=== PATIENT | male | born 1970 | race Caucasian/White ===

== ENCOUNTER 2020-11-21 11:32 | Inpatient (IN) | payer OTHER ==
[2020-11-21 13:35] VITALS: BMI 28.5
[2020-11-21] MEDS ORDERED: MAGNESIUM CITRATE 300 ML BOTTLE PO PRN (15:09)
[2020-11-21] MEDS ORDERED: BISMUTH SUBSALICYLATE 262 MG/15 ML BTL PO PRN (15:09)
[2020-11-21] MEDS ORDERED: MENTHOL/PHENOL 1 EACH UD MM PRN (15:09)
[2020-11-21] MEDS ORDERED: ACETAMINOPHEN 325 MG TABLET (FP) PO PRN ×2 (15:09)
[2020-11-21] MEDS ORDERED: NALOXONE (NARCAN) HCL 4 MG/0.1 ML SPRAY NS PRN (15:09)
[2020-11-21] MEDS ORDERED: IBUPROFEN 400 MG TABLET (FP) PO PRN (15:09)
[2020-11-21] MEDS ORDERED: METHOCARBAMOL 500 MG TABLET PO PRN (15:09)
[2020-11-21] MEDS ORDERED: NICOTINE POLACRILEX 2 MG GUM BUC PRN (15:09)
[2020-11-21] MEDS ORDERED: ONDANSETRON *ODT* 4 MG TABLET ONE (15:20)
[2020-11-21] MEDS: ONDANSETRON *ODT* 4 MG TABLET SL PRN (15:21)
[2020-11-21] MEDS: LORazepam 2 MG TABLET PO SCH ×2 (16:31→22:00)
[2020-11-21] MEDS: PRENATAL VITAMINS W/ FOLIC ACID TABLET (FP) PO SCH (16:35)
[2020-11-21] MEDS: NIFEdipine E.R. 90 MG TABLET PO SCH (17:30)
[2020-11-21] MEDS: NICOTINE 21 MG/24 HOURS TOPICAL PATCH TD SCH (17:41)
[2020-11-21] MEDS ORDERED: hydrOXYzine PAMOATE 25 MG CAPSULE (FP) PO SCH (18:00)
[2020-11-21 18:42] LABS: HEMATOCRIT 40.8 % (35.4-49); HEMOGLOBIN 13.8 GM/dL (11.7-16.9); MCH 32.7 pg (25.7-33.7); MCHC 33.7 g/dl (32.0-35.9); MEAN CELL VOLUME 96.8 fl (80-96); MEAN PLT VOLUME 11.3 fl (7.5-11.1); PLATELET COUNT 93 K/MM3 (134-434); RBC 4.22 M/mm3 (4.00-5.60); RDW 17.2 % (11.9-15.9); WHITE BLOOD COUNT 4.5 K/mm3 (4.0-10.0)
[2020-11-21 18:43] LABS: CHLORIDE 98 mmol/L (98-107); SODIUM 140 mmol/L (136-145)
[2020-11-21 18:46] LABS: ALBUMIN 3.9 g/dl (3.4-5.0); BLOOD UREA NITROGEN 12.4 mg/dL (7-18); CALCIUM 8.8 mg/dL (8.5-10.1); CO2 33 mmol/L (21-32); GLUCOSE,RANDOM 87 mg/dL (74-106)
[2020-11-21 18:49] LABS: CREATININE 0.9 mg/dL (0.55-1.3); SGOT/AST 319 U/L (15-37); SGPT/ALT 153 U/L (13-61)
[2020-11-21 18:51] LABS: BILIRUBIN,TOTAL 2.2 mg/dL (0.2-1); TOT PROT 7.9 g/dl (6.4-8.2)
[2020-11-21 18:52] LABS: ALK PHOS 145 U/L (45-117)
[2020-11-21] MEDS: LORazepam 1 MG TABLET PO PRN (18:52)
[2020-11-21 19:04] LABS: ANION GAP 9 MMOL/L (8-16)
[2020-11-21] MEDS ORDERED: POTASSIUM CHLORIDE ORAL LIQUID 20 MEQ/15 ML PO ONE (19:32)
[2020-11-21] MEDS ORDERED: TRIMETHOBENZAMIDE HCL 200MG/2ML INJ IM ONE (21:06)
[2020-11-21] MEDS ORDERED: cloNIDine HCL 0.1 MG TABLET PO ONE (21:10)
[2020-11-21] MEDS: THIAMINE HCL 100 MG TABLET (FP) PO SCH (21:56)
[2020-11-21] MEDS: POTASSIUM CHLORIDE ORAL LIQUID 20 MEQ/15 ML PO SCH (21:56)
[2020-11-21] MEDS: MELATONIN 5 MG TABLETS PO SCH (22:00)
[2020-11-22] MEDS ORDERED: METHADONE HCL 40 MG DISPERSABLE TABLET ONE (04:08)
[2020-11-22] MEDS ORDERED: METHADONE HCL 10 MG TABLET ONE (04:08)
[2020-11-22] MEDS: LORazepam 2 MG TABLET PO SCH ×4 (05:09→22:06)
[2020-11-22] MEDS: METHADONE 160 MG, METHADONE 20 MG PO SCH (05:10)
[2020-11-22] MEDS: ONDANSETRON *ODT* 4 MG TABLET SL PRN (05:11)
[2020-11-22] MEDS ORDERED: METHADONE HCL 10 MG TABLET PO SCH (06:00)
[2020-11-22] MEDS: LORazepam 1 MG TABLET PO PRN ×2 (08:39→13:32)
[2020-11-22] MEDS: NICOTINE 21 MG/24 HOURS TOPICAL PATCH TD SCH (10:17)
[2020-11-22] MEDS: POTASSIUM CHLORIDE ORAL LIQUID 20 MEQ/15 ML PO SCH ×2 (10:20→22:05)
[2020-11-22] MEDS: PRENATAL VITAMINS W/ FOLIC ACID TABLET (FP) PO SCH (10:20)
[2020-11-22] MEDS: NIFEdipine E.R. 90 MG TABLET PO SCH (10:20)
[2020-11-22] MEDS: LISINOPRIL 20 MG TABLET PO SCH (10:20)
[2020-11-22 10:31] LABS: CHLORIDE 96 mmol/L (98-107); SODIUM 140 mmol/L (136-145)
[2020-11-22 10:44] LABS: BLOOD UREA NITROGEN 13.9 mg/dL (7-18); CO2 38 mmol/L (21-32); GLUCOSE,RANDOM 103 mg/dL (74-106)
[2020-11-22 10:47] LABS: CREATININE 0.8 mg/dL (0.55-1.3)
[2020-11-22 10:55] LABS: ANION GAP 6 MMOL/L (8-16)
[2020-11-22] MEDS: SERTRALINE HCL 50 MG TABLET (FP) PO SCH (11:08)
[2020-11-22] MEDS ORDERED: POTASSIUM CHLORIDE TABS 20 MEQ TABLET.ER (FP) PO ONE (11:16)
[2020-11-22] MEDS ORDERED: FLU VACCINE (FLULAVAL) PF 60 MCG/0.5 ML SYRINGE 2020-2021 IM ONE (12:00)
[2020-11-22] MEDS ORDERED: PNEUMOC 13-VAL CONJ-DIP CRM/PF 0.5 ML DISP.SYRIN IM ONE (12:00)
[2020-11-22] MEDS ORDERED: PNEUMOCOCCAL 23 VACCINE 0.5 ML VIAL IM ONE (12:00)
[2020-11-22] MEDS: GABAPENTIN 300 MG CAPSULE PO SCH ×2 (13:34→22:05)
[2020-11-22] MEDS: THIAMINE HCL 100 MG TABLET (FP) PO SCH (22:05)
[2020-11-22] MEDS: OLANZapine 7.5 MG TABLET PO SCH (22:05)
[2020-11-22] MEDS: MELATONIN 5 MG TABLETS PO SCH (22:06)
[2020-11-23] MEDS ORDERED: METHADONE HCL 10 MG TABLET ONE (03:36)
[2020-11-23] MEDS ORDERED: METHADONE HCL 40 MG DISPERSABLE TABLET ONE (03:37)
[2020-11-23] MEDS: GABAPENTIN 300 MG CAPSULE PO SCH ×3 (05:15→22:05)
[2020-11-23] MEDS: LORazepam 1 MG TABLET PO SCH ×4 (05:17→22:05)
[2020-11-23] MEDS: METHADONE 160 MG, METHADONE 20 MG PO SCH (05:52)
[2020-11-23] MEDS: NICOTINE 21 MG/24 HOURS TOPICAL PATCH TD SCH (10:16)
[2020-11-23] MEDS: PRENATAL VITAMINS W/ FOLIC ACID TABLET (FP) PO SCH (10:16)
[2020-11-23] MEDS: LISINOPRIL 20 MG TABLET PO SCH (10:17)
[2020-11-23] MEDS: SERTRALINE HCL 50 MG TABLET (FP) PO SCH (10:17)
[2020-11-23] MEDS: NIFEdipine E.R. 90 MG TABLET PO SCH (10:17)
[2020-11-23] MEDS: POTASSIUM CHLORIDE ORAL LIQUID 20 MEQ/15 ML PO SCH ×2 (10:18→22:06)
[2020-11-23] MEDS: OLANZapine 7.5 MG TABLET PO SCH (22:05)
[2020-11-23] MEDS: THIAMINE HCL 100 MG TABLET (FP) PO SCH (22:05)
[2020-11-23] MEDS: MELATONIN 5 MG TABLETS PO SCH (22:06)
[2020-11-24] MEDS ORDERED: LORazepam 0.5 MG TABLET PO PRN
[2020-11-24] MEDS ORDERED: METHADONE HCL 10 MG TABLET ONE (04:11)
[2020-11-24] MEDS ORDERED: METHADONE HCL 40 MG DISPERSABLE TABLET ONE (04:12)
[2020-11-24] MEDS: METHADONE 160 MG, METHADONE 20 MG PO SCH (05:56)
[2020-11-24] MEDS: LORazepam 0.5 MG TABLET PO SCH ×4 (05:58→22:21)
[2020-11-24] MEDS: GABAPENTIN 300 MG CAPSULE PO SCH ×3 (05:58→22:21)
[2020-11-24 10:11] LABS: SARS-CoV-2 NAA Not Detected (Not Detected)
[2020-11-24] MEDS: PRENATAL VITAMINS W/ FOLIC ACID TABLET (FP) PO SCH (10:29)
[2020-11-24] MEDS: NIFEdipine E.R. 90 MG TABLET PO SCH (10:30)
[2020-11-24] MEDS: SERTRALINE HCL 50 MG TABLET (FP) PO SCH (10:30)
[2020-11-24] MEDS: POTASSIUM CHLORIDE ORAL LIQUID 20 MEQ/15 ML PO SCH ×2 (10:31→22:55)
[2020-11-24] MEDS: NICOTINE 21 MG/24 HOURS TOPICAL PATCH TD SCH (10:31)
[2020-11-24] MEDS: THIAMINE HCL 100 MG TABLET (FP) PO SCH (22:21)
[2020-11-24] MEDS: OLANZapine 7.5 MG TABLET PO SCH (22:26)
[2020-11-24] MEDS: MELATONIN 5 MG TABLETS PO SCH (22:27)
[2020-11-25] MEDS ORDERED: METHADONE HCL 40 MG DISPERSABLE TABLET ONE (03:20)
[2020-11-25] MEDS ORDERED: METHADONE HCL 10 MG TABLET ONE (03:20)
[2020-11-25] MEDS ORDERED: LORazepam 0.5 MG TABLET PO ONE (05:00)
[2020-11-25] MEDS: METHADONE 160 MG, METHADONE 20 MG PO SCH (05:49)
[2020-11-25] MEDS: GABAPENTIN 300 MG CAPSULE PO SCH ×3 (05:50→21:05)
[2020-11-25] MEDS: PRENATAL VITAMINS W/ FOLIC ACID TABLET (FP) PO SCH (10:13)
[2020-11-25] MEDS: SERTRALINE HCL 50 MG TABLET (FP) PO SCH (10:14)
[2020-11-25] MEDS: NICOTINE 21 MG/24 HOURS TOPICAL PATCH TD SCH (10:14)
[2020-11-25] MEDS: NIFEdipine E.R. 90 MG TABLET PO SCH (10:14)
[2020-11-25] MEDS: POTASSIUM CHLORIDE ORAL LIQUID 20 MEQ/15 ML PO SCH (11:00)
[2020-11-25] MEDS: MELATONIN 5 MG TABLETS PO SCH (21:05)
[2020-11-25] MEDS: THIAMINE HCL 100 MG TABLET (FP) PO SCH (21:06)
[2020-11-25] MEDS ORDERED: OLANZapine 10 MG TABLET ONE (21:34)
[2020-11-25] MEDS ORDERED: OLANZapine 5 MG TABLET ONE (21:34)
[2020-11-25] MEDS: OLANZapine 7.5 MG TABLET PO SCH (21:41)
[2020-11-25] MEDS ORDERED: OLANZAPINE 10 MG, OLANZAPINE 5 MG PO SCH (22:00)
[2020-11-26] MEDS ORDERED: METHADONE HCL 10 MG TABLET ONE (05:25)
[2020-11-26] MEDS ORDERED: METHADONE HCL 40 MG DISPERSABLE TABLET ONE (05:25)
[2020-11-26] MEDS: GABAPENTIN 300 MG CAPSULE PO SCH ×3 (06:44→21:11)
[2020-11-26] MEDS: METHADONE 160 MG, METHADONE 20 MG PO SCH (06:44)
[2020-11-26] MEDS: ONDANSETRON *ODT* 4 MG TABLET SL PRN (06:59)
[2020-11-26] MEDS ORDERED: PT OWN MED DRAWER 7, Y5N ONE ×3 (08:16→19:37)
[2020-11-26] MEDS: SERTRALINE HCL 50 MG TABLET (FP) PO SCH (09:27)
[2020-11-26] MEDS: PRENATAL VITAMINS W/ FOLIC ACID TABLET (FP) PO SCH (09:28)
[2020-11-26] MEDS: NICOTINE 21 MG/24 HOURS TOPICAL PATCH TD SCH (09:28)
[2020-11-26] MEDS: NIFEdipine E.R. 90 MG TABLET PO SCH (11:00)
[2020-11-26] MEDS: POTASSIUM CHLORIDE ORAL LIQUID 20 MEQ/15 ML PO SCH ×2 (11:20→21:12)
[2020-11-26] MEDS ORDERED: TRIMETHOBENZAMIDE HCL 200MG/2ML INJ IM PRN (11:51)
[2020-11-26] MEDS: MELATONIN 5 MG TABLETS PO SCH (21:10)
[2020-11-26] MEDS: OLANZapine 5 MG TABLET PO SCH (21:10)
[2020-11-26] MEDS: THIAMINE HCL 100 MG TABLET (FP) PO SCH (21:10)
[2020-11-27] MEDS ORDERED: METHADONE HCL 40 MG DISPERSABLE TABLET ONE (03:26)
[2020-11-27] MEDS ORDERED: METHADONE HCL 10 MG TABLET ONE (03:26)
[2020-11-27] MEDS: METHADONE 160 MG, METHADONE 20 MG PO SCH (06:33)
[2020-11-27] MEDS: GABAPENTIN 300 MG CAPSULE PO SCH ×3 (06:33→21:18)
[2020-11-27] MEDS ORDERED: PT OWN MED DRAWER 7, Y5N ONE ×3 (08:45→19:08)
[2020-11-27] MEDS: POTASSIUM CHLORIDE ORAL LIQUID 20 MEQ/15 ML PO SCH (10:01)
[2020-11-27] MEDS: SERTRALINE HCL 50 MG TABLET (FP) PO SCH (10:02)
[2020-11-27] MEDS: NIFEdipine E.R. 90 MG TABLET PO SCH (10:02)
[2020-11-27] MEDS: PRENATAL VITAMINS W/ FOLIC ACID TABLET (FP) PO SCH (10:02)
[2020-11-27] MEDS: LISINOPRIL 20 MG TABLET PO SCH (10:02)
[2020-11-27] MEDS: NICOTINE 21 MG/24 HOURS TOPICAL PATCH TD SCH (10:03)
[2020-11-27] MEDS ORDERED: FLU VACCINE (FLULAVAL) PF 60 MCG/0.5 ML SYRINGE 2020-2021 IM ONE (12:00)
[2020-11-27] MEDS ORDERED: PNEUMOCOCCAL 23 VACCINE 0.5 ML VIAL IM ONE (12:00)
[2020-11-27] MEDS: THIAMINE HCL 100 MG TABLET (FP) PO SCH (21:18)
[2020-11-27] MEDS: OLANZapine 5 MG TABLET PO SCH (21:18)
[2020-11-27] MEDS: MELATONIN 5 MG TABLETS PO SCH (21:18)
[2020-11-28] MEDS ORDERED: METHADONE HCL 10 MG TABLET ONE (03:22)
[2020-11-28] MEDS ORDERED: METHADONE HCL 40 MG DISPERSABLE TABLET ONE (03:23)
[2020-11-28] MEDS: METHADONE 160 MG, METHADONE 20 MG PO SCH (06:31)
[2020-11-28] MEDS: GABAPENTIN 300 MG CAPSULE PO SCH ×3 (06:32→21:21)
[2020-11-28] MEDS ORDERED: PT OWN MED DRAWER 7, Y5N ONE (08:59)
[2020-11-28] MEDS: NICOTINE 21 MG/24 HOURS TOPICAL PATCH TD SCH (09:16)
[2020-11-28] MEDS: SERTRALINE HCL 50 MG TABLET (FP) PO SCH (09:17)
[2020-11-28] MEDS: PRENATAL VITAMINS W/ FOLIC ACID TABLET (FP) PO SCH (09:18)
[2020-11-28] MEDS: NIFEdipine E.R. 90 MG TABLET PO SCH (09:18)
[2020-11-28] MEDS: LISINOPRIL 20 MG TABLET PO SCH (09:18)
[2020-11-28] MEDS: MAGNESIUM HYDROX 2400MG/30ML ORAL SUSPENSION 30 ML CUP PO PRN (09:20)
[2020-11-28] MEDS: OLANZapine 5 MG TABLET PO SCH (21:21)
[2020-11-28] MEDS: MELATONIN 5 MG TABLETS PO SCH (21:22)
[2020-11-28] MEDS: THIAMINE HCL 100 MG TABLET (FP) PO SCH (21:22)
[2020-11-28] MEDS: MAG HYDROX/AL HYDROX/SIMETH 30 ML UNIT-DOSE CUP PO PRN (21:23)
[2020-11-29] MEDS ORDERED: METHADONE HCL 10 MG TABLET ONE (03:18)
[2020-11-29] MEDS ORDERED: METHADONE HCL 40 MG DISPERSABLE TABLET ONE (03:19)
[2020-11-29] MEDS: METHADONE 160 MG, METHADONE 20 MG PO SCH (06:35)
[2020-11-29] MEDS: GABAPENTIN 300 MG CAPSULE PO SCH ×3 (06:36→21:17)
[2020-11-29] MEDS ORDERED: PT OWN MED DRAWER 7, Y5N ONE ×2 (08:41→20:25)
[2020-11-29] MEDS: NICOTINE 21 MG/24 HOURS TOPICAL PATCH TD SCH (09:03)
[2020-11-29] MEDS: PRENATAL VITAMINS W/ FOLIC ACID TABLET (FP) PO SCH (09:03)
[2020-11-29] MEDS: NIFEdipine E.R. 90 MG TABLET PO SCH (09:04)
[2020-11-29] MEDS: SERTRALINE HCL 50 MG TABLET (FP) PO SCH (09:04)
[2020-11-29] MEDS: LISINOPRIL 20 MG TABLET PO SCH (09:04)
[2020-11-29] MEDS: THIAMINE HCL 100 MG TABLET (FP) PO SCH (21:15)
[2020-11-29] MEDS: MELATONIN 5 MG TABLETS PO SCH (21:15)
[2020-11-29] MEDS: OLANZapine 5 MG TABLET PO SCH (21:16)
[2020-11-30] MEDS ORDERED: METHADONE HCL 40 MG DISPERSABLE TABLET ONE (03:35)
[2020-11-30] MEDS ORDERED: METHADONE HCL 10 MG TABLET ONE (03:35)
[2020-11-30] MEDS: GABAPENTIN 300 MG CAPSULE PO SCH ×3 (06:14→21:14)
[2020-11-30] MEDS: METHADONE 160 MG, METHADONE 20 MG PO SCH (06:14)
[2020-11-30] MEDS ORDERED: PT OWN MED DRAWER 7, Y5N ONE ×2 (08:51→18:38)
[2020-11-30] MEDS: SERTRALINE HCL 50 MG TABLET (FP) PO SCH (09:36)
[2020-11-30] MEDS: PRENATAL VITAMINS W/ FOLIC ACID TABLET (FP) PO SCH (09:36)
[2020-11-30] MEDS: LISINOPRIL 20 MG TABLET PO SCH (09:36)
[2020-11-30] MEDS: NIFEdipine E.R. 90 MG TABLET PO SCH (09:37)
[2020-11-30] MEDS: NICOTINE 21 MG/24 HOURS TOPICAL PATCH TD SCH (09:38)
[2020-11-30] MEDS: MAG HYDROX/AL HYDROX/SIMETH 30 ML UNIT-DOSE CUP PO PRN (11:26)
[2020-11-30 14:08] LABS: SARS-CoV-2 NAA Not Detected (Not Detected)
[2020-11-30] MEDS ORDERED: FAMOTIDINE 20 MG TABLET PO ONE (15:49)
[2020-11-30] MEDS: THIAMINE HCL 100 MG TABLET (FP) PO SCH (21:14)
[2020-11-30] MEDS: OLANZapine 5 MG TABLET PO SCH (21:14)
[2020-11-30] MEDS: MELATONIN 5 MG TABLETS PO SCH (21:14)
[2020-11-30] MEDS: FAMOTIDINE 20 MG TABLET PO SCH (21:15)
[2020-12-01] MEDS ORDERED: METHADONE HCL 10 MG TABLET ONE (06:13)
[2020-12-01] MEDS ORDERED: METHADONE HCL 40 MG DISPERSABLE TABLET ONE (06:13)
[2020-12-01] MEDS: METHADONE 160 MG, METHADONE 20 MG PO SCH (06:18)
[2020-12-01] MEDS: GABAPENTIN 300 MG CAPSULE PO SCH ×3 (06:19→21:02)
[2020-12-01] MEDS: NICOTINE 21 MG/24 HOURS TOPICAL PATCH TD SCH (09:34)
[2020-12-01] MEDS: SERTRALINE HCL 50 MG TABLET (FP) PO SCH (09:34)
[2020-12-01] MEDS: NIFEdipine E.R. 90 MG TABLET PO SCH (09:35)
[2020-12-01] MEDS: PRENATAL VITAMINS W/ FOLIC ACID TABLET (FP) PO SCH (09:35)
[2020-12-01] MEDS: LISINOPRIL 20 MG TABLET PO SCH (09:35)
[2020-12-01] MEDS: FAMOTIDINE 20 MG TABLET PO SCH ×2 (09:35→21:02)
[2020-12-01] MEDS ORDERED: PT OWN MED DRAWER 7, Y5N ONE (19:59)
[2020-12-01] MEDS: OLANZapine 5 MG TABLET PO SCH (21:02)
[2020-12-01] MEDS: THIAMINE HCL 100 MG TABLET (FP) PO SCH (21:03)
[2020-12-01] MEDS: MELATONIN 5 MG TABLETS PO SCH (21:03)
[2020-12-02] MEDS ORDERED: METHADONE HCL 40 MG DISPERSABLE TABLET ONE (03:17)
[2020-12-02] MEDS ORDERED: METHADONE HCL 10 MG TABLET ONE (03:17)
[2020-12-02] MEDS: METHADONE 160 MG, METHADONE 20 MG PO SCH (06:29)
[2020-12-02] MEDS: GABAPENTIN 300 MG CAPSULE PO SCH ×3 (06:30→21:12)
[2020-12-02] MEDS ORDERED: PT OWN MED DRAWER 7, Y5N ONE ×2 (08:05→21:13)
[2020-12-02] MEDS: SERTRALINE HCL 50 MG TABLET (FP) PO SCH (09:20)
[2020-12-02] MEDS: LISINOPRIL 20 MG TABLET PO SCH (09:20)
[2020-12-02] MEDS: NIFEdipine E.R. 90 MG TABLET PO SCH (09:20)
[2020-12-02] MEDS: FAMOTIDINE 20 MG TABLET PO SCH ×2 (09:21→21:12)
[2020-12-02] MEDS: NICOTINE 21 MG/24 HOURS TOPICAL PATCH TD SCH (09:21)
[2020-12-02] MEDS: PRENATAL VITAMINS W/ FOLIC ACID TABLET (FP) PO SCH (10:13)
[2020-12-02] MEDS: THIAMINE HCL 100 MG TABLET (FP) PO SCH (21:12)
[2020-12-02] MEDS: MELATONIN 5 MG TABLETS PO SCH (21:12)
[2020-12-02] MEDS: OLANZapine 5 MG TABLET PO SCH (21:36)
[2020-12-03] MEDS ORDERED: METHADONE HCL 10 MG TABLET ONE (03:20)
[2020-12-03] MEDS ORDERED: METHADONE HCL 40 MG DISPERSABLE TABLET ONE (03:20)
[2020-12-03] MEDS: GABAPENTIN 300 MG CAPSULE PO SCH ×3 (07:03→21:26)
[2020-12-03] MEDS: METHADONE 160 MG, METHADONE 20 MG PO SCH (07:03)
[2020-12-03] MEDS ORDERED: PT OWN MED DRAWER 7, Y5N ONE (09:21)
[2020-12-03] MEDS: SERTRALINE HCL 50 MG TABLET (FP) PO SCH (09:55)
[2020-12-03] MEDS: PRENATAL VITAMINS W/ FOLIC ACID TABLET (FP) PO SCH (09:56)
[2020-12-03] MEDS: LISINOPRIL 20 MG TABLET PO SCH (09:56)
[2020-12-03] MEDS: FAMOTIDINE 20 MG TABLET PO SCH ×2 (09:56→21:25)
[2020-12-03] MEDS: NIFEdipine E.R. 90 MG TABLET PO SCH (09:56)
[2020-12-03] MEDS: NICOTINE 21 MG/24 HOURS TOPICAL PATCH TD SCH (09:57)
[2020-12-03] MEDS: MAGNESIUM HYDROX 2400MG/30ML ORAL SUSPENSION 30 ML CUP PO PRN (16:59)
[2020-12-03] MEDS: MELATONIN 5 MG TABLETS PO SCH (21:25)
[2020-12-03] MEDS: THIAMINE HCL 100 MG TABLET (FP) PO SCH (21:25)
[2020-12-03] MEDS: OLANZapine 5 MG TABLET PO SCH (21:26)
[2020-12-04] MEDS ORDERED: METHADONE HCL 10 MG TABLET ONE (04:02)
[2020-12-04] MEDS ORDERED: METHADONE HCL 40 MG DISPERSABLE TABLET ONE (04:03)
[2020-12-04] MEDS: METHADONE 160 MG, METHADONE 20 MG PO SCH (06:04)
[2020-12-04] MEDS: GABAPENTIN 300 MG CAPSULE PO SCH ×3 (06:05→21:09)
[2020-12-04] MEDS ORDERED: cloNIDine HCL 0.1 MG TABLET PO ONE (07:39)
[2020-12-04] MEDS: SERTRALINE HCL 50 MG TABLET (FP) PO SCH (09:45)
[2020-12-04] MEDS: FAMOTIDINE 20 MG TABLET PO SCH ×2 (09:45→21:09)
[2020-12-04] MEDS: LISINOPRIL 20 MG TABLET PO SCH (09:45)
[2020-12-04] MEDS: NIFEdipine E.R. 90 MG TABLET PO SCH (09:46)
[2020-12-04] MEDS: PRENATAL VITAMINS W/ FOLIC ACID TABLET (FP) PO SCH (09:46)
[2020-12-04] MEDS: NICOTINE 21 MG/24 HOURS TOPICAL PATCH TD SCH (09:46)
[2020-12-04] MEDS ORDERED: cloNIDine HCL 0.1 MG TABLET PO SCH (12:30)
[2020-12-04] MEDS: LACTULOSE 20 GM/30 ML UDC (FOR ORAL USE ONLY) PO SCH ×2 (14:25→21:10)
[2020-12-04] MEDS: MELATONIN 5 MG TABLETS PO SCH (21:09)
[2020-12-04] MEDS: THIAMINE HCL 100 MG TABLET (FP) PO SCH (21:09)
[2020-12-04] MEDS: OLANZapine 5 MG TABLET PO SCH (21:09)
[2020-12-05] MEDS ORDERED: METHADONE HCL 40 MG DISPERSABLE TABLET ONE (06:05)
[2020-12-05] MEDS ORDERED: METHADONE HCL 10 MG TABLET ONE (06:05)
[2020-12-05] MEDS: GABAPENTIN 300 MG CAPSULE PO SCH ×3 (06:09→21:17)
[2020-12-05] MEDS: METHADONE 160 MG, METHADONE 20 MG PO SCH (06:09)
[2020-12-05 07:15] VITALS: TEMP 97.1
[2020-12-05] MEDS ORDERED: PT OWN MED DRAWER 7, Y5N ONE (08:48)
[2020-12-05] MEDS: LACTULOSE 20 GM/30 ML UDC (FOR ORAL USE ONLY) PO SCH ×2 (09:47→21:18)
[2020-12-05] MEDS: LISINOPRIL 20 MG TABLET PO SCH (09:47)
[2020-12-05] MEDS: NIFEdipine E.R. 90 MG TABLET PO SCH (09:47)
[2020-12-05] MEDS: FAMOTIDINE 20 MG TABLET PO SCH ×2 (09:47→21:17)
[2020-12-05] MEDS: NICOTINE 21 MG/24 HOURS TOPICAL PATCH TD SCH (09:48)
[2020-12-05] MEDS: SERTRALINE HCL 50 MG TABLET (FP) PO SCH (09:48)
[2020-12-05] MEDS: PRENATAL VITAMINS W/ FOLIC ACID TABLET (FP) PO SCH (09:48)
[2020-12-05] MEDS: BACITRACIN 0.9 GM PACKET TP SCH ×2 (13:50→21:17)
[2020-12-05] MEDS: MELATONIN 5 MG TABLETS PO SCH (21:17)
[2020-12-05] MEDS: OLANZapine 5 MG TABLET PO SCH (21:17)
[2020-12-05] MEDS: THIAMINE HCL 100 MG TABLET (FP) PO SCH (21:18)
[2020-12-06] MEDS ORDERED: METHADONE HCL 10 MG TABLET ONE (03:19)
[2020-12-06] MEDS ORDERED: METHADONE HCL 40 MG DISPERSABLE TABLET ONE (03:19)
[2020-12-06] MEDS: METHADONE 160 MG, METHADONE 20 MG PO SCH (06:08)
[2020-12-06] MEDS: GABAPENTIN 300 MG CAPSULE PO SCH (06:09)
[2020-12-06 09:17] VITALS: BP 153/92; PULSE 65
[2020-12-06] MEDS: NICOTINE 21 MG/24 HOURS TOPICAL PATCH TD SCH (09:25)
[2020-12-06] MEDS: BACITRACIN 0.9 GM PACKET TP SCH (09:26)
[2020-12-06] MEDS: FAMOTIDINE 20 MG TABLET PO SCH (09:26)
[2020-12-06] MEDS: LISINOPRIL 20 MG TABLET PO SCH (09:26)
[2020-12-06] MEDS: SERTRALINE HCL 50 MG TABLET (FP) PO SCH (09:26)
[2020-12-06] MEDS: NIFEdipine E.R. 90 MG TABLET PO SCH (09:27)
[2020-12-06] MEDS: PRENATAL VITAMINS W/ FOLIC ACID TABLET (FP) PO SCH (09:28)
[2020-12-06] MEDS: LACTULOSE 20 GM/30 ML UDC (FOR ORAL USE ONLY) PO SCH (09:29)
== END 2020-12-06 10:22 | disposition home or self-care (01) | DRG 895 ==
LOC: YASAS 11:32 → Y6N 14:36 → Y3E 11-25 15:14
PROVIDERS: ADMIT Allergy & Immunology; ATTEND Allergy & Immunology
PROC: HZ2ZZZZ Detoxification Services for Substance Abuse Treatment (ICD-10-PCS; 2020-11-21)
PROC: HZ42ZZZ Group Counseling for Substance Abuse Treatment, Cognitive-Behavioral (ICD-10-PCS; principal; 2020-11-25)
DX: F10.20 Alcohol dependence, uncomplicated (principal); F11.20 Opioid dependence, uncomplicated; F12.20 Cannabis dependence, uncomplicated; F17.210 Nicotine dependence, cigarettes, uncomplicated; F10.282 Alcohol dependence with alcohol-induced sleep disorder; F10.280 Alcohol dependence with alcohol-induced anxiety disorder; F31.9 Bipolar disorder, unspecified; F41.1 Generalized anxiety disorder; E87.6 Hypokalemia; I10 Essential (primary) hypertension; I71.9 Aortic aneurysm of unspecified site, without rupture; K21.9 Gastro-esophageal reflux disease without esophagitis; K74.60 Unspecified cirrhosis of liver; K59.00 Constipation, unspecified; Z62.810 Personal history of physical and sexual abuse in childhood; Z56.0 Unemployment, unspecified; Z59.0 Homelessness; R11.2 Nausea with vomiting, unspecified; R25.1 Tremor, unspecified
CPT/HCPCS: 36415; 80048; 80053; 84132; 85027; 86780; 90732; 93005; 93010; C9803; G0008; G0009; J0735; Q0162; Q2036; U0003; U0005

== ENCOUNTER 2022-09-26 13:44 | Inpatient (IN) | payer OTHER ==
[2022-09-26 14:25] VITALS: BMI 34.2
[2022-09-26] MEDS ORDERED: NALOXONE HCL (KLOXXADO) 8 MG SPRAY NS PRN (16:32)
[2022-09-26] MEDS ORDERED: DICYCLOMINE HCL 10 MG CAPSULE PO PRN (16:32)
[2022-09-26] MEDS ORDERED: BENZOCAINE/MENTHOL (CHLORASEPTIC ) LOZENGE MM PRN (16:32)
[2022-09-26] MEDS ORDERED: BISMUTH SUBSALICYLATE 524 MG/30 ML PO PRN (16:32)
[2022-09-26] MEDS ORDERED: LOPERAMIDE HCL 2 MG CAPSULE PO PRN (16:32)
[2022-09-26] MEDS ORDERED: IBUPROFEN 600 MG TABLET (FP) PO PRN (16:32)
[2022-09-26] MEDS ORDERED: POLYETHYLENE GLYCOL (HEALTHYLAX) 3350 17 GM PACKET PO PRN (16:32)
[2022-09-26] MEDS ORDERED: NICOTINE 10 MG CARTRIDGE (INHALER) IH PRN (16:32)
[2022-09-26] MEDS ORDERED: ACETAMINOPHEN 325 MG TABLET (FP) PO PRN ×2 (16:32)
[2022-09-26] MEDS ORDERED: NICOTINE POLACRILEX 2 MG GUM BUC PRN (16:32)
[2022-09-26] MEDS ORDERED: ONDANSETRON *ODT* 4 MG TABLET SL PRN (16:32)
[2022-09-26] MEDS ORDERED: IBUPROFEN 400 MG TABLET (FP) PO PRN (16:32)
[2022-09-26] MEDS ORDERED: METHOCARBAMOL 500 MG TABLET PO PRN (16:32)
[2022-09-26] MEDS ORDERED: MAGNESIUM HYDROX 2400MG/30ML ORAL SUSPENSION 30 ML CUP PO PRN (16:32)
[2022-09-26] MEDS ORDERED: MAG HYDROX/AL HYDROX/SIMETH 30 ML UNIT-DOSE CUP PO PRN (16:32)
[2022-09-26] MEDS ORDERED: hydrOXYzine PAMOATE 25 MG CAPSULE (FP) PO PRN (16:32)
[2022-09-26] MEDS: CARVEDILOL 3.125 MG TABLET (FP) PO SCH (23:02)
[2022-09-26] MEDS: TAMSULOSIN HCL 0.4 MG CAP PO SCH (23:02)
[2022-09-26] MEDS: MELATONIN 5 MG TABLETS PO SCH (23:02)
[2022-09-26] MEDS: THIAMINE HCL 100 MG TABLET (FP) PO SCH (23:02)
[2022-09-27] MEDS: SPIRONOLACTONE 25 MG TABLET PO SCH (10:23)
[2022-09-27] MEDS: PRENATAL VITAMINS W/ FOLIC ACID TABLET (FP) PO SCH (10:23)
[2022-09-27] MEDS: FUROSEMIDE 20 MG TABLET (FP) PO SCH (10:24)
[2022-09-27] MEDS: GABAPENTIN 300 MG CAPSULE PO SCH (10:24)
[2022-09-27] MEDS: CARVEDILOL 3.125 MG TABLET (FP) PO SCH ×2 (10:25→21:54)
[2022-09-27] MEDS: RIFAXIMIN 550 MG TABLET PO SCH ×4 (10:52→12:09)
[2022-09-27] MEDS: OLANZapine 5 MG TABLET PO SCH (12:12)
[2022-09-27] MEDS ORDERED: methaDONE HCL 10 MG TABLET PO SCH (13:45)
[2022-09-27] MEDS: methaDONE 40 MG, methaDONE 30 MG PO SCH (14:15)
[2022-09-27] MEDS: TAMSULOSIN HCL 0.4 MG CAP PO SCH (21:54)
[2022-09-27] MEDS: THIAMINE HCL 100 MG TABLET (FP) PO SCH (21:55)
[2022-09-27] MEDS: OLANZapine 10 MG TABLET PO SCH (21:55)
[2022-09-27] MEDS: MELATONIN 5 MG TABLETS PO SCH (21:57)
[2022-09-28] MEDS: methaDONE 40 MG, methaDONE 30 MG PO SCH (05:22)
[2022-09-28] MEDS: FUROSEMIDE 20 MG TABLET (FP) PO SCH (10:03)
[2022-09-28] MEDS: SPIRONOLACTONE 25 MG TABLET PO SCH (10:03)
[2022-09-28] MEDS: GABAPENTIN 300 MG CAPSULE PO SCH (10:03)
[2022-09-28] MEDS: RIFAXIMIN 550 MG TABLET PO SCH (10:04)
[2022-09-28] MEDS: PRENATAL VITAMINS W/ FOLIC ACID TABLET (FP) PO SCH (10:04)
[2022-09-28] MEDS: CARVEDILOL 3.125 MG TABLET (FP) PO SCH ×2 (10:04→22:10)
[2022-09-28] MEDS: OLANZapine 5 MG TABLET PO SCH (10:04)
[2022-09-28] MEDS ORDERED: LORazepam 1 MG TABLET PO PRN (10:08)
[2022-09-28] MEDS: LORazepam 2 MG TABLET PO SCH ×2 (17:14→22:10)
[2022-09-28] MEDS: OLANZapine 10 MG TABLET PO SCH (22:10)
[2022-09-28] MEDS: THIAMINE HCL 100 MG TABLET (FP) PO SCH (22:10)
[2022-09-28] MEDS: TAMSULOSIN HCL 0.4 MG CAP PO SCH (22:10)
[2022-09-29] MEDS: LORazepam 1 MG TABLET PO SCH ×4 (05:55→22:33)
[2022-09-29] MEDS: methaDONE 40 MG, methaDONE 30 MG PO SCH (05:56)
[2022-09-29] MEDS: RIFAXIMIN 550 MG TABLET PO SCH (10:16)
[2022-09-29] MEDS: GABAPENTIN 300 MG CAPSULE PO SCH (10:16)
[2022-09-29] MEDS: OLANZapine 5 MG TABLET PO SCH (10:16)
[2022-09-29] MEDS: PRENATAL VITAMINS W/ FOLIC ACID TABLET (FP) PO SCH (10:17)
[2022-09-29] MEDS: FUROSEMIDE 20 MG TABLET (FP) PO SCH (10:17)
[2022-09-29] MEDS: CARVEDILOL 3.125 MG TABLET (FP) PO SCH ×2 (10:17→22:19)
[2022-09-29] MEDS: SPIRONOLACTONE 25 MG TABLET PO SCH (10:17)
[2022-09-29 12:10] LABS: HEMATOCRIT 31.7 % (35.4-49); HEMOGLOBIN 10.4 GM/dL (11.7-16.9); MCH 30.4 pg (25.7-33.7); MCHC 32.9 g/dl (32.0-35.9); MEAN CELL VOLUME 92.5 fl (80-96); MEAN PLT VOLUME 10.8 fl (7.5-11.1); PLATELET COUNT 81 10^3/uL (134-434); RBC 3.42 M/mm3 (4.00-5.60); RDW 18.6 % (11.9-15.9); WHITE BLOOD COUNT 3.9 K/mm3 (4.0-10.0)
[2022-09-29 12:16] LABS: CALCIUM 8.7 mg/dL (8.5-10.1)
[2022-09-29 12:17] LABS: ALBUMIN 2.8 g/dl (3.4-5.0); BLOOD UREA NITROGEN 9.6 mg/dL (7-18)
[2022-09-29 12:20] LABS: CREATININE 0.9 mg/dL (0.55-1.3)
[2022-09-29 12:22] LABS: BILIRUBIN,TOTAL 1.6 mg/dL (0.2-1); TOT PROT 6.8 g/dl (6.4-8.2)
[2022-09-29] MEDS: LACTULOSE 20 GM/30 ML UDC (FOR ORAL USE ONLY) PO SCH ×2 (17:34→22:19)
[2022-09-29] MEDS: MELATONIN 5 MG TABLETS PO SCH ×2 (22:19)
[2022-09-29] MEDS: TAMSULOSIN HCL 0.4 MG CAP PO SCH (22:19)
[2022-09-29] MEDS: OLANZapine 10 MG TABLET PO SCH (22:19)
[2022-09-29] MEDS: THIAMINE HCL 100 MG TABLET (FP) PO SCH (22:19)
[2022-09-30] MEDS ORDERED: LORazepam 0.5 MG TABLET PO PRN
[2022-09-30] MEDS: LORazepam 0.5 MG TABLET PO SCH ×4 (06:02→22:18)
[2022-09-30] MEDS: methaDONE 40 MG, methaDONE 30 MG PO SCH (06:07)
[2022-09-30] MEDS: PRENATAL VITAMINS W/ FOLIC ACID TABLET (FP) PO SCH (10:24)
[2022-09-30] MEDS: FUROSEMIDE 20 MG TABLET (FP) PO SCH (10:24)
[2022-09-30] MEDS: GABAPENTIN 300 MG CAPSULE PO SCH (10:24)
[2022-09-30] MEDS: CARVEDILOL 3.125 MG TABLET (FP) PO SCH ×2 (10:24→22:17)
[2022-09-30] MEDS: OLANZapine 5 MG TABLET PO SCH (10:24)
[2022-09-30] MEDS: RIFAXIMIN 550 MG TABLET PO SCH (10:24)
[2022-09-30] MEDS: SPIRONOLACTONE 25 MG TABLET PO SCH (10:25)
[2022-09-30] MEDS: LACTULOSE 20 GM/30 ML UDC (FOR ORAL USE ONLY) PO SCH ×5 (10:26→23:19)
[2022-09-30 11:51] LABS: ALBUMIN 2.4 g/dl (3.4-5.0); BLOOD UREA NITROGEN 11.6 mg/dL (7-18); CALCIUM 8.5 mg/dL (8.5-10.1)
[2022-09-30 11:55] LABS: CREATININE 0.9 mg/dL (0.55-1.3)
[2022-09-30 11:56] LABS: BILIRUBIN,TOTAL 1.4 mg/dL (0.2-1)
[2022-09-30] MEDS: OLANZapine 10 MG TABLET PO SCH (22:17)
[2022-09-30] MEDS: THIAMINE HCL 100 MG TABLET (FP) PO SCH (22:17)
[2022-09-30] MEDS: TAMSULOSIN HCL 0.4 MG CAP PO SCH (22:17)
[2022-09-30] MEDS: MELATONIN 5 MG TABLETS PO SCH (22:18)
[2022-10-01] MEDS ORDERED: LORazepam 0.5 MG TABLET PO ONE (05:00)
[2022-10-01] MEDS: methaDONE 40 MG, methaDONE 30 MG PO SCH (05:38)
[2022-10-01 09:25] VITALS: BP 105/64; PULSE 68; RESP 16; TEMP 98
[2022-10-01] MEDS: SPIRONOLACTONE 25 MG TABLET PO SCH (10:57)
[2022-10-01] MEDS: PRENATAL VITAMINS W/ FOLIC ACID TABLET (FP) PO SCH (10:57)
[2022-10-01] MEDS: GABAPENTIN 300 MG CAPSULE PO SCH (10:57)
[2022-10-01] MEDS: RIFAXIMIN 550 MG TABLET PO SCH (10:57)
[2022-10-01] MEDS: FUROSEMIDE 20 MG TABLET (FP) PO SCH (10:57)
[2022-10-01] MEDS: CARVEDILOL 3.125 MG TABLET (FP) PO SCH (10:57)
[2022-10-01] MEDS: OLANZapine 5 MG TABLET PO SCH (10:57)
[2022-10-01] MEDS: LACTULOSE 20 GM/30 ML UDC (FOR ORAL USE ONLY) PO SCH (10:57)
== END 2022-10-01 10:15 | disposition home or self-care (01) | DRG 897 ==
LOC: YASAS 13:44 → Y6N 18:26 → UNDOADMIN 18:26 → Y6N 09-28 10:00 → UNDOADMIN 09-28 10:00
PROVIDERS: ADMIT Allergy & Immunology; ATTEND Surgery
PROC: HZ2ZZZZ Detoxification Services for Substance Abuse Treatment (ICD-10-PCS; principal; 2022-09-26)
DX: F10.230 Alcohol dependence with withdrawal, uncomplicated (principal); F11.20 Opioid dependence, uncomplicated; F14.20 Cocaine dependence, uncomplicated; F19.282 Other psychoactive substance dependence with psychoactive substance-induced sleep disorder; F12.20 Cannabis dependence, uncomplicated; F17.210 Nicotine dependence, cigarettes, uncomplicated; F31.9 Bipolar disorder, unspecified; F19.24 Other psychoactive substance dependence with psychoactive substance-induced mood disorder; F41.1 Generalized anxiety disorder; F43.10 Post-traumatic stress disorder, unspecified; I10 Essential (primary) hypertension; K70.30 Alcoholic cirrhosis of liver without ascites; R79.89 Other specified abnormal findings of blood chemistry; R74.8 Abnormal levels of other serum enzymes; Z86.19 Personal history of other infectious and parasitic diseases
CPT/HCPCS: 36415; 80053; 82140; 85027; 86780; 86803; 87522; C9803-CS; U0003; U0005

== ENCOUNTER 2022-11-13 20:16 | Inpatient (IN) | payer OTHER ==
[2022-11-13 21:14] VITALS: BMI 31.6
[2022-11-13] MEDS ORDERED: LORazepam 1 MG TABLET PO PRN (22:09)
[2022-11-13] MEDS ORDERED: P-EPHED 60MG/TRIPROLIDI 2.5MG TABLET PO PRN (22:10)
[2022-11-13] MEDS ORDERED: IBUPROFEN 600 MG TABLET (FP) PO PRN (22:10)
[2022-11-13] MEDS ORDERED: BISMUTH SUBSALICYLATE 524 MG/30 ML PO PRN (22:10)
[2022-11-13] MEDS ORDERED: MAGNESIUM HYDROX 2400MG/30ML ORAL SUSPENSION 30 ML CUP PO PRN (22:10)
[2022-11-13] MEDS ORDERED: guaiFENesin 600 MG TABLET.ER (FP) PO PRN (22:10)
[2022-11-13] MEDS ORDERED: LOPERAMIDE HCL 2 MG CAPSULE PO PRN (22:10)
[2022-11-13] MEDS ORDERED: NICOTINE 10 MG CARTRIDGE (INHALER) IH PRN (22:10)
[2022-11-13] MEDS ORDERED: ONDANSETRON *ODT* 4 MG TABLET SL PRN (22:10)
[2022-11-13] MEDS ORDERED: NALOXONE HCL (KLOXXADO) 8 MG SPRAY NS PRN (22:10)
[2022-11-13] MEDS ORDERED: DICYCLOMINE HCL 10 MG CAPSULE PO PRN (22:10)
[2022-11-13] MEDS ORDERED: IBUPROFEN 400 MG TABLET (FP) PO PRN (22:10)
[2022-11-13] MEDS ORDERED: BENZOCAINE/MENTHOL (CHLORASEPTIC ) LOZENGE MM PRN (22:10)
[2022-11-13] MEDS ORDERED: NICOTINE POLACRILEX 2 MG GUM BUC PRN (22:10)
[2022-11-13] MEDS ORDERED: BENZONATATE 200 MG CAPSULE PO PRN (22:10)
[2022-11-13] MEDS ORDERED: NALOXONE HCL 0.4 MG/ML VIAL IM PRN (22:10)
[2022-11-13] MEDS ORDERED: MELATONIN 5 MG TABLETS PO PRN (22:10)
[2022-11-13] MEDS ORDERED: MAG HYDROX/AL HYDROX/SIMETH 30 ML UNIT-DOSE CUP PO PRN (22:10)
[2022-11-13] MEDS ORDERED: POLYETHYLENE GLYCOL (HEALTHYLAX) 3350 17 GM PACKET PO PRN (22:10)
[2022-11-14] MEDS: TAMSULOSIN HCL 0.4 MG CAP PO SCH ×2 (01:04→22:15)
[2022-11-14] MEDS: LACTULOSE 20 GM/30 ML UDC (FOR ORAL USE ONLY) PO SCH ×5 (01:04→22:14)
[2022-11-14] MEDS: LORazepam 2 MG TABLET PO SCH ×5 (01:05→22:15)
[2022-11-14] MEDS: CARVEDILOL 3.125 MG TABLET (FP) PO SCH ×3 (01:12→22:15)
[2022-11-14] MEDS: GABAPENTIN 300 MG CAPSULE PO SCH ×4 (01:12→22:15)
[2022-11-14] MEDS: PRENATAL VITAMINS W/ FOLIC ACID TABLET (FP) PO SCH (10:36)
[2022-11-14] MEDS: FUROSEMIDE 20 MG TABLET (FP) PO SCH (10:36)
[2022-11-14] MEDS: OLANZapine 5 MG TABLET PO SCH (10:37)
[2022-11-14] MEDS: methaDONE HCL 40 MG DISPERSABLE TABLET PO SCH (10:40)
[2022-11-14] MEDS: FOLIC ACID 1 MG TABLET (FP) PO SCH (11:20)
[2022-11-14 11:45] LABS: BLOOD UREA NITROGEN 18.1 mg/dL (7-18); CALCIUM 8.8 mg/dL (8.5-10.1)
[2022-11-14 11:46] LABS: ALBUMIN 2.5 g/dl (3.4-5.0)
[2022-11-14 11:48] LABS: CREATININE 0.9 mg/dL (0.55-1.3); HEMATOCRIT 31.3 % (35.4-49); HEMOGLOBIN 10.7 GM/dL (11.7-16.9); MCH 29.6 pg (25.7-33.7); MEAN CELL VOLUME 86.9 fl (80-96); PLATELET COUNT 64 10^3/uL (134-434); RDW 18.1 % (11.9-15.9); WHITE BLOOD COUNT 3.9 K/mm3 (4.0-10.0)
[2022-11-14 11:51] LABS: BILIRUBIN,TOTAL 1.5 mg/dL (0.2-1); TOT PROT 6.2 g/dl (6.4-8.2)
[2022-11-14] MEDS: RIFAXIMIN 550 MG TABLET PO SCH (12:17)
[2022-11-14] MEDS: OLANZapine 10 MG TABLET PO SCH (22:15)
[2022-11-14] MEDS: THIAMINE HCL 100 MG TABLET (FP) PO SCH (22:15)
[2022-11-15] MEDS: LORazepam 1 MG TABLET PO SCH ×4 (05:46→22:31)
[2022-11-15] MEDS: GABAPENTIN 300 MG CAPSULE PO SCH ×3 (05:46→22:30)
[2022-11-15] MEDS: methaDONE HCL 40 MG DISPERSABLE TABLET PO SCH (05:46)
[2022-11-15] MEDS: RIFAXIMIN 550 MG TABLET PO SCH (10:47)
[2022-11-15] MEDS: PRENATAL VITAMINS W/ FOLIC ACID TABLET (FP) PO SCH (10:47)
[2022-11-15] MEDS: FOLIC ACID 1 MG TABLET (FP) PO SCH (10:47)
[2022-11-15] MEDS: CARVEDILOL 3.125 MG TABLET (FP) PO SCH ×2 (10:47→22:31)
[2022-11-15] MEDS: FUROSEMIDE 20 MG TABLET (FP) PO SCH (10:48)
[2022-11-15] MEDS: LACTULOSE 20 GM/30 ML UDC (FOR ORAL USE ONLY) PO SCH ×4 (10:48→22:30)
[2022-11-15] MEDS: OLANZapine 5 MG TABLET PO SCH (10:49)
[2022-11-15] MEDS: TAMSULOSIN HCL 0.4 MG CAP PO SCH (22:30)
[2022-11-15] MEDS: OLANZapine 10 MG TABLET PO SCH (22:30)
[2022-11-15] MEDS: THIAMINE HCL 100 MG TABLET (FP) PO SCH (22:31)
[2022-11-16] MEDS ORDERED: LORazepam 0.5 MG TABLET PO PRN
[2022-11-16] MEDS: GABAPENTIN 300 MG CAPSULE PO SCH ×3 (05:34→22:09)
[2022-11-16] MEDS: methaDONE HCL 40 MG DISPERSABLE TABLET PO SCH (05:35)
[2022-11-16] MEDS: LORazepam 0.5 MG TABLET PO SCH ×4 (05:35→22:10)
[2022-11-16] MEDS: FUROSEMIDE 20 MG TABLET (FP) PO SCH (10:11)
[2022-11-16] MEDS: FOLIC ACID 1 MG TABLET (FP) PO SCH (10:11)
[2022-11-16] MEDS: RIFAXIMIN 550 MG TABLET PO SCH (10:11)
[2022-11-16] MEDS: CARVEDILOL 3.125 MG TABLET (FP) PO SCH ×2 (10:11→22:09)
[2022-11-16] MEDS: PRENATAL VITAMINS W/ FOLIC ACID TABLET (FP) PO SCH (10:11)
[2022-11-16] MEDS: OLANZapine 5 MG TABLET PO SCH (10:11)
[2022-11-16] MEDS: LACTULOSE 20 GM/30 ML UDC (FOR ORAL USE ONLY) PO SCH ×4 (10:12→22:10)
[2022-11-16 21:12] VITALS: PULSE 76; RESP 18
[2022-11-16] MEDS: THIAMINE HCL 100 MG TABLET (FP) PO SCH (22:09)
[2022-11-16] MEDS: OLANZapine 10 MG TABLET PO SCH (22:09)
[2022-11-16] MEDS: TAMSULOSIN HCL 0.4 MG CAP PO SCH (22:09)
[2022-11-17] MEDS ORDERED: LORazepam 0.5 MG TABLET PO ONE (05:00)
[2022-11-17] MEDS: methaDONE HCL 40 MG DISPERSABLE TABLET PO SCH (05:43)
[2022-11-17] MEDS: GABAPENTIN 300 MG CAPSULE PO SCH (05:43)
[2022-11-17 05:58] VITALS: BP 144/60; TEMP 97.1
[2022-11-17] MEDS: OLANZapine 5 MG TABLET PO SCH (09:24)
[2022-11-17] MEDS: FOLIC ACID 1 MG TABLET (FP) PO SCH (09:24)
[2022-11-17] MEDS: FUROSEMIDE 20 MG TABLET (FP) PO SCH (09:24)
[2022-11-17] MEDS: RIFAXIMIN 550 MG TABLET PO SCH (09:25)
[2022-11-17] MEDS: CARVEDILOL 3.125 MG TABLET (FP) PO SCH (09:25)
[2022-11-17] MEDS: LACTULOSE 20 GM/30 ML UDC (FOR ORAL USE ONLY) PO SCH (09:26)
[2022-11-17] MEDS: PRENATAL VITAMINS W/ FOLIC ACID TABLET (FP) PO SCH (09:26)
== END 2022-11-17 09:26 | disposition home or self-care (01) | DRG 897 ==
LOC: YASAS 20:16 → Y6N 23:48
PROVIDERS: ADMIT Allergy & Immunology; ATTEND Surgery
PROC: HZ2ZZZZ Detoxification Services for Substance Abuse Treatment (ICD-10-PCS; principal; 2022-11-13)
DX: F10.230 Alcohol dependence with withdrawal, uncomplicated (principal); F14.20 Cocaine dependence, uncomplicated; F11.23 Opioid dependence with withdrawal; F17.210 Nicotine dependence, cigarettes, uncomplicated; F19.24 Other psychoactive substance dependence with psychoactive substance-induced mood disorder; F31.9 Bipolar disorder, unspecified; F43.10 Post-traumatic stress disorder, unspecified; I10 Essential (primary) hypertension; K70.30 Alcoholic cirrhosis of liver without ascites; Z62.810 Personal history of physical and sexual abuse in childhood; Z59.00 Homelessness unspecified; Z86.79 Personal history of other diseases of the circulatory system; Z87.19 Personal history of other diseases of the digestive system
CPT/HCPCS: 36415; 80053; 85027; 86780; C9803-CS; U0003; U0005

== ENCOUNTER 2023-05-29 20:46 | Inpatient (IN) | payer OTHER ==
[2023-05-29 22:19] VITALS: BMI 34.9
[2023-05-29] MEDS ORDERED: TRIMETHOBENZAMIDE HCL 200MG/2ML INJ IM ONE ×2 (22:32→23:21)
[2023-05-29] MEDS ORDERED: LORazepam 2 MG TABLET PO ONE (22:32)
[2023-05-29] MEDS ORDERED: DICYCLOMINE HCL 10 MG CAPSULE PO PRN (22:48)
[2023-05-29] MEDS ORDERED: BISMUTH SUBSALICYLATE 524 MG/30 ML PO PRN (22:48)
[2023-05-29] MEDS ORDERED: NALOXONE HCL 0.4 MG/ML VIAL IM PRN (22:48)
[2023-05-29] MEDS ORDERED: BENZONATATE 200 MG CAPSULE PO PRN (22:48)
[2023-05-29] MEDS ORDERED: LOPERAMIDE HCL 2 MG CAPSULE PO PRN (22:48)
[2023-05-29] MEDS ORDERED: BENZOCAINE/MENTHOL (CHLORASEPTIC ) LOZENGE MM PRN (22:48)
[2023-05-29] MEDS ORDERED: MAG HYDROX/AL HYDROX/SIMETH 30 ML UNIT-DOSE CUP PO PRN (22:48)
[2023-05-29] MEDS ORDERED: guaiFENesin 600 MG TABLET.ER (FP) PO PRN (22:48)
[2023-05-29] MEDS ORDERED: LORazepam 1 MG TABLET PO PRN (22:48)
[2023-05-29] MEDS ORDERED: NICOTINE POLACRILEX 4 MG GUM BUC PRN (22:48)
[2023-05-29] MEDS ORDERED: NALOXONE HCL (KLOXXADO) 8 MG SPRAY NS PRN (22:48)
[2023-05-29] MEDS ORDERED: MAGNESIUM HYDROX 2400MG/30ML ORAL SUSPENSION 30 ML CUP PO PRN (22:48)
[2023-05-29] MEDS ORDERED: POLYETHYLENE GLYCOL (HEALTHYLAX) 3350 17 GM PACKET PO PRN (22:48)
[2023-05-30] MEDS: LORazepam 2 MG TABLET PO SCH ×4 (05:46→22:09)
[2023-05-30] MEDS: ONDANSETRON *ODT* 4 MG TABLET SL PRN ×2 (05:48→10:34)
[2023-05-30] MEDS: NICOTINE 21 MG/24 HOURS TOPICAL PATCH TD SCH (10:34)
[2023-05-30] MEDS: PRENATAL VITAMINS W/ FOLIC ACID TABLET (FP) PO SCH (10:34)
[2023-05-30 12:28] LABS: HEMATOCRIT 23.7 % (35.4-49); HEMOGLOBIN 7.8 GM/dL (11.7-16.9); MCH 25.7 pg (25.7-33.7); MEAN CELL VOLUME 77.9 fl (80-96); MEAN PLT VOLUME 9.6 fl (7.5-11.1); PLATELET COUNT 46 10^3/uL (134-434); POTASSIUM 3.5 mmol/L (3.5-5.1); RBC 3.05 M/mm3 (4.00-5.60); RDW 20.6 % (11.9-15.9); WHITE BLOOD COUNT 8.2 K/mm3 (4.0-10.0)
[2023-05-30 12:32] LABS: BLOOD UREA NITROGEN 12.7 mg/dL (7-18); CALCIUM 7.7 mg/dL (8.5-10.1)
[2023-05-30 12:34] LABS: CREATININE 0.9 mg/dL (0.55-1.3)
[2023-05-30 12:37] LABS: TOT PROT 5.8 g/dl (6.4-8.2)
[2023-05-30] MEDS: hydrOXYzine PAMOATE 25 MG CAPSULE (FP) PO PRN ×2 (13:19→22:09)
[2023-05-30] MEDS ORDERED: GABAPENTIN 300 MG CAPSULE PO SCH (14:00)
[2023-05-30] MEDS ORDERED: methaDONE HCL 10 MG TABLET PO SCH (16:45)
[2023-05-30] MEDS: methaDONE 80 MG, methaDONE 10 MG PO SCH (18:35)
[2023-05-30] MEDS: OLANZapine 10 MG TABLET PO SCH (22:09)
[2023-05-30] MEDS: THIAMINE HCL 100 MG TABLET (FP) PO SCH (22:09)
[2023-05-30] MEDS: MELATONIN 5 MG TABLETS PO SCH (22:09)
[2023-05-31] MEDS: methaDONE 80 MG, methaDONE 10 MG PO SCH (05:54)
[2023-05-31] MEDS: LORazepam 1 MG TABLET PO SCH ×4 (05:54→22:26)
[2023-05-31] MEDS: PRENATAL VITAMINS W/ FOLIC ACID TABLET (FP) PO SCH (10:38)
[2023-05-31] MEDS: OLANZapine 5 MG TABLET PO SCH (10:38)
[2023-05-31] MEDS: NICOTINE 21 MG/24 HOURS TOPICAL PATCH TD SCH (10:38)
[2023-05-31] MEDS: hydrOXYzine PAMOATE 25 MG CAPSULE (FP) PO PRN (14:01)
[2023-05-31] MEDS: OLANZapine 10 MG TABLET PO SCH (22:23)
[2023-05-31] MEDS: MELATONIN 5 MG TABLETS PO SCH (22:26)
[2023-05-31] MEDS: THIAMINE HCL 100 MG TABLET (FP) PO SCH (22:27)
[2023-06-01] MEDS ORDERED: LORazepam 0.5 MG TABLET PO PRN
[2023-06-01] MEDS: methaDONE 80 MG, methaDONE 10 MG PO SCH (05:48)
[2023-06-01] MEDS: LORazepam 0.5 MG TABLET PO SCH ×4 (05:48→23:30)
[2023-06-01 10:13] LABS: HEMATOCRIT 27.8 % (35.4-49); HEMOGLOBIN 8.7 GM/dL (11.7-16.9); MCHC 31.4 g/dl (32.0-35.9); MEAN CELL VOLUME 79.7 fl (80-96); MEAN PLT VOLUME 10.6 fl (7.5-11.1); PLATELET COUNT 65 10^3/uL (134-434); RBC 3.49 M/mm3 (4.00-5.60); RDW 21.4 % (11.9-15.9); RETICULOCYTES 2.59 % (0.5-1.5); WHITE BLOOD COUNT 4.9 K/mm3 (4.0-10.0)
[2023-06-01] MEDS: OLANZapine 5 MG TABLET PO SCH (10:16)
[2023-06-01] MEDS: PRENATAL VITAMINS W/ FOLIC ACID TABLET (FP) PO SCH (10:16)
[2023-06-01] MEDS: hydrOXYzine PAMOATE 25 MG CAPSULE (FP) PO PRN (10:16)
[2023-06-01] MEDS: NICOTINE 21 MG/24 HOURS TOPICAL PATCH TD SCH (10:17)
[2023-06-01 10:20] LABS: POTASSIUM 3.7 mmol/L (3.5-5.1)
[2023-06-01 10:26] LABS: ALBUMIN 2.2 g/dl (3.4-5.0); BLOOD UREA NITROGEN 12.8 mg/dL (7-18); CALCIUM 7.7 mg/dL (8.5-10.1)
[2023-06-01 10:29] LABS: CREATININE 0.9 mg/dL (0.55-1.3)
[2023-06-01 10:31] LABS: BILIRUBIN,TOTAL 1.8 mg/dL (0.2-1); TOT PROT 6.5 g/dl (6.4-8.2)
[2023-06-01 12:46] VITALS: BP 139/80; PULSE 107; RESP 17; TEMP 98.9
[2023-06-01] MEDS: LACTULOSE 20 GM/30 ML UDC (FOR ORAL USE ONLY) PO SCH ×3 (13:59→23:30)
[2023-06-01] MEDS: THIAMINE HCL 100 MG TABLET (FP) PO SCH (23:30)
[2023-06-01] MEDS: OLANZapine 10 MG TABLET PO SCH (23:30)
[2023-06-01] MEDS: MELATONIN 5 MG TABLETS PO SCH (23:30)
[2023-06-02] MEDS ORDERED: LORazepam 0.5 MG TABLET PO ONE (05:00)
== END 2023-06-01 23:36 | disposition short-term general hospital (02) | DRG 897 ==
LOC: YASAS 20:46 → Y3N 23:55
PROVIDERS: ADMIT Allergy & Immunology; ATTEND Surgery
PROC: HZ2ZZZZ Detoxification Services for Substance Abuse Treatment (ICD-10-PCS; principal; 2023-05-29)
DX: F10.230 Alcohol dependence with withdrawal, uncomplicated (principal); F11.20 Opioid dependence, uncomplicated; F14.20 Cocaine dependence, uncomplicated; F12.20 Cannabis dependence, uncomplicated; F17.210 Nicotine dependence, cigarettes, uncomplicated; F31.9 Bipolar disorder, unspecified; F19.24 Other psychoactive substance dependence with psychoactive substance-induced mood disorder; G47.00 Insomnia, unspecified; I10 Essential (primary) hypertension; K70.30 Alcoholic cirrhosis of liver without ascites; R41.82 Altered mental status, unspecified; Z91.81 History of falling
CPT/HCPCS: 36415; 80053; 82140; 82607; 82746; 83540; 83550; 85027; 85045; 86780; 87635; Q0162

== ENCOUNTER 2023-06-01 14:56 | Inpatient (IN) | payer OTHER ==
[2023-06-01] MEDS ORDERED: ACETAMINOPHEN 1000 MG/100 ML BAG IVPB ONE (15:55)
[2023-06-01] MEDS ORDERED: ACETAMINOPHEN INJECTION 100 ML IVPB ONE (16:13)
[2023-06-01 16:20] VITALS: BMI 38.0
[2023-06-01 16:29] LABS: VENOUS BASE EXCESS 2.2 mmol/L (-2-2); VENOUS O2 SATURATION 99.1 % (70-80); VENOUS PCO2 32.5 mmHg (38-52); VENOUS PH 7.506 (7.310-7.410)
[2023-06-01 16:35] LABS: BASO % 0.3 % (0-2.0); HEMATOCRIT 28.8 % (35.4-49); HEMOGLOBIN 9.1 GM/dL (11.7-16.9); LYMPH % 3.1 % (8-40); MCHC 31.6 g/dl (32.0-35.9); MEAN CELL VOLUME 79.1 fl (80-96); MEAN PLT VOLUME 9.3 fl (7.5-11.1); MONO % 7.3 % (3.8-10.2); NEUT % 89.3 % (42.8-82.8); PLATELET COUNT 65 10^3/uL (134-434); RBC 3.65 M/mm3 (4.00-5.60); RDW 21.4 % (11.9-15.9); WHITE BLOOD COUNT 7.6 K/mm3 (4.0-10.0)
[2023-06-01 16:44] LABS: INR 1.69 (0.83-1.09); PROTHROMBIN TIME (PATIENT) 19.5 SEC (9.7-13.0)
[2023-06-01 16:46] LABS: ACTIVATED PTT 31.2 SECONDS (25.2-36.5)
[2023-06-01 16:51] LABS: EPI CELLS 6 /uL (0-25.1); HYALINE CASTS 0 /uL (0-3.1); URINE APPEARANCE CLEAR; URINE BACTERIA 5 /uL (0-1359); URINE BILIRUBIN 1+ (NEGATIVE); URINE COLOR DK YELLOW; URINE GLUCOSE (UA) NEGATIVE (NEGATIVE); URINE KETONE TRACE (NEGATIVE); URINE LEUK ESTERASE TRACE (NEGATIVE); URINE NITRITE NEGATIVE (NEGATIVE); URINE PROTEIN NEGATIVE (NEGATIVE); URINE RBC 10 /uL (0-23.9); URINE WBC 6 /uL (0-25.8)
[2023-06-01 16:59] LABS: POTASSIUM 3.6 mmol/L (3.5-5.1)
[2023-06-01 17:01] LABS: CALCIUM 7.7 mg/dL (8.5-10.1)
[2023-06-01 17:02] LABS: ALBUMIN 2.3 g/dl (3.4-5.0); MAGNESIUM 1.3 mg/dL (1.8-2.4)
[2023-06-01 17:05] LABS: CREATININE 0.9 mg/dL (0.55-1.3)
[2023-06-01 17:06] LABS: BILIRUBIN,TOTAL 2.9 mg/dL (0.2-1); TOT PROT 6.8 g/dl (6.4-8.2)
[2023-06-01 17:09] LABS: ANISOCYTOSIS 3+; MACROCYTOSIS 0; OVALOCYTE 1+; TARGET CELLS 1+
[2023-06-01 17:11] LABS: LACTIC ACID 2.4 mmol/L (0.4-2.0)
[2023-06-01] MEDS ORDERED: LACTATED RINGERS SOLUTION 1000 ML INFUS.BAG IV ONE (17:21)
[2023-06-01] MEDS ORDERED: LACTULOSE 20 GM/30 ML UDC (FOR ORAL USE ONLY) PO ONE (17:27)
[2023-06-01] MEDS ORDERED: LACTULOSE 20 GM/30 ML UDC (FOR ORAL USE ONLY) ONE (17:32)
[2023-06-01] MEDS ORDERED: VANCOMYCIN 1,000 MG in DEXTROSE 5%-WATER - 250 ML IVPB ONE (18:34)
[2023-06-01] MEDS ORDERED: PIPERACILLIN/TAZOB 4.5 GM 4.5 GM in DEXTROSE 5%-WATER 100 ML IVPB ONE (18:34)
[2023-06-01] MEDS ORDERED: MAGNESIUM SULF 50% (8.12 MEQ/2 ML-1 GM VIAL) IVPB ONE (18:34)
[2023-06-01] MEDS ORDERED: MAGNESIUM SULFATE IN WATER 2 GM/50 ML IVPB IVPB ONE (18:55)
[2023-06-01] MEDS ORDERED: PIPERACILLIN/TAZOB 4.5 GM 4.5 GM/100 ML BAG IVPB ONE (18:55)
[2023-06-01] MEDS ORDERED: VANCOMYCIN 1 GRAM (PRE-DOCKED) 1,000 MG/250 ML BAG IVPB ONE (19:50)
[2023-06-01 20:18] LABS: LACTIC ACID 2.6 mmol/L (0.4-2.0)
[2023-06-01] MEDS ORDERED: LACTULOSE 20 GM/30 ML UDC (FOR RECTAL USE ONLY) PR SCH (22:45)
[2023-06-02] MEDS ORDERED: LACTULOSE 20 GM/30 ML UDC (FOR ORAL USE ONLY) ONE (04:23)
[2023-06-02] MEDS: LACTULOSE 20 GM/30 ML UDC (FOR ORAL USE ONLY) NGT SCH ×2 (04:28→04:52)
[2023-06-02] MEDS: ACAMPROSATE CALCIUM 333 MG TABLET.DR PO SCH ×3 (06:05→23:10)
[2023-06-02 09:13] LABS: BASO % 0.2 % (0-2.0); EOS % 0.3 % (0-4.5); HEMATOCRIT 27.6 % (35.4-49); HEMOGLOBIN 8.6 GM/dL (11.7-16.9); LYMPH % 11.9 % (8-40); MCH 24.4 pg (25.7-33.7); MCHC 31.1 g/dl (32.0-35.9); MEAN CELL VOLUME 78.5 fl (80-96); MEAN PLT VOLUME 9.3 fl (7.5-11.1); MONO % 8.7 % (3.8-10.2); NEUT % 78.9 % (42.8-82.8); PLATELET COUNT 45 10^3/uL (134-434); RBC 3.52 M/mm3 (4.00-5.60); RDW 22.3 % (11.9-15.9); WHITE BLOOD COUNT 7.8 K/mm3 (4.0-10.0)
[2023-06-02 09:14] LABS: POTASSIUM 3.3 mmol/L (3.5-5.1)
[2023-06-02 09:21] LABS: ALBUMIN 2.1 g/dl (3.4-5.0)
[2023-06-02 09:23] LABS: BILIRUBIN,DIRECT 1.4 mg/dL (0.0-0.2)
[2023-06-02 09:25] LABS: BILIRUBIN,TOTAL 3.1 mg/dL (0.2-1); TOT PROT 6.1 g/dl (6.4-8.2)
[2023-06-02 09:42] LABS: BLOOD UREA NITROGEN 15.8 mg/dL (7-18)
[2023-06-02 09:45] LABS: ALBUMIN 2.1 g/dl (3.4-5.0)
[2023-06-02 09:47] LABS: TOT PROT 6.3 g/dl (6.4-8.2)
[2023-06-02 09:48] LABS: BILIRUBIN,TOTAL 3.1 mg/dL (0.2-1); CREATININE 0.9 mg/dL (0.55-1.3); PHOSPHOROUS 2.6 mg/dL (2.5-4.9)
[2023-06-02 09:49] LABS: CALCIUM 7.9 mg/dL (8.5-10.1)
[2023-06-02 09:50] LABS: MAGNESIUM 1.9 mg/dL (1.8-2.4)
[2023-06-02] MEDS ORDERED: THIAMINE HCL 100 MG TABLET (FP) ONE (09:56)
[2023-06-02] MEDS ORDERED: LISINOPRIL 20 MG TABLET ONE (09:56)
[2023-06-02] MEDS ORDERED: FUROSEMIDE 40 MG TABLET (FP) ONE (09:56)
[2023-06-02] MEDS ORDERED: FOLIC ACID 1 MG TABLET (FP) ONE (09:56)
[2023-06-02] MEDS ORDERED: CARVEDILOL 3.125 MG TABLET (FP) ONE (09:56)
[2023-06-02] MEDS ORDERED: NICOTINE 14 MG/24 HOURS TOPICAL PATCH TD ONE (09:57)
[2023-06-02] MEDS ORDERED: TAMSULOSIN HCL 0.4 MG CAP ONE (09:57)
[2023-06-02] MEDS ORDERED: SPIRONOLACTONE 25 MG TABLET ONE (09:57)
[2023-06-02] MEDS ORDERED: methaDONE HCL 10 MG TABLET PO SCH (10:00)
[2023-06-02] MEDS ORDERED: FUROSEMIDE 20 MG TABLET (FP) PO SCH (10:00)
[2023-06-02] MEDS ORDERED: RIFAXIMIN 550 MG TABLET PO SCH ×2 (10:00)
[2023-06-02] MEDS: TAMSULOSIN HCL 0.4 MG CAP PO SCH (10:24)
[2023-06-02] MEDS: SPIRONOLACTONE 25 MG TABLET PO SCH (10:24)
[2023-06-02] MEDS: FOLIC ACID 1 MG TABLET (FP) PO SCH (10:24)
[2023-06-02] MEDS: CARVEDILOL 3.125 MG TABLET (FP) PO SCH ×2 (10:24→23:12)
[2023-06-02] MEDS: NICOTINE 14 MG/24 HOURS TOPICAL PATCH TD SCH (10:24)
[2023-06-02] MEDS: NIFEdipine E.R. 90 MG TABLET PO SCH (10:25)
[2023-06-02] MEDS: THIAMINE HCL 100 MG TABLET (FP) PO SCH (10:25)
[2023-06-02] MEDS: LISINOPRIL 20 MG TABLET PO SCH (10:25)
[2023-06-02] MEDS ORDERED: LORazepam 2 MG TABLET PO ONE (10:33)
[2023-06-02] MEDS ORDERED: LORazepam 1 MG TABLET PO PRN ×2 (10:34→10:35)
[2023-06-02] MEDS: LACTATED RINGERS SOLUTION 1,000 ML/1,000 ML INFUS.BAG IV SCH (10:36)
[2023-06-02] MEDS: LORazepam 1 MG TABLET PO SCH ×3 (10:41→23:09)
[2023-06-02] MEDS ORDERED: ALBUMIN HUMAN 25% 12.5 GM/50 ML VIAL IV SCH (10:45)
[2023-06-02 10:53] LABS: LACTIC ACID 2.1 mmol/L (0.4-2.0)
[2023-06-02] MEDS ORDERED: LACTULOSE 20 GM/30 ML UDC (FOR ORAL USE ONLY) PO SCH (12:00)
[2023-06-02] MEDS: RIFAXIMIN 550 MG TABLET PO SCH ×2 (12:56→23:10)
[2023-06-02] MEDS ORDERED: CEFTRIAXONE 2 GM/100 ML BAG IVPB ONE (14:46)
[2023-06-02] MEDS: CEFTRIAXONE 2 GM in DEXTROSE 5%-WATER 100 ML IVPB SCH (14:56)
[2023-06-02 15:21] LABS: BF WBC & OTHER NUCLEATED CELLS 262 /mm3
[2023-06-02] MEDS: ALBUMIN HUMAN 25% 12.5 GM/50 ML VIAL IV SCH ×4 (16:04→17:55)
[2023-06-02] MEDS ORDERED: LORazepam 1 MG TABLET ONE (18:02)
[2023-06-02 18:59] LABS: BODY FLUID MONOCYTE 2 %
[2023-06-02 19:00] LABS: BODY FLUID MACROPHAGES 32 %; BODY FLUID MESOTHELIAL 5 %
[2023-06-02] MEDS: LACTULOSE 20 GM/30 ML UDC (FOR ORAL USE ONLY) PO SCH (23:10)
[2023-06-03] MEDS: ACAMPROSATE CALCIUM 333 MG TABLET.DR PO SCH ×2 (05:30→14:04)
[2023-06-03] MEDS: LORazepam 1 MG TABLET PO SCH ×2 (05:36→11:42)
[2023-06-03] MEDS: LACTULOSE 20 GM/30 ML UDC (FOR ORAL USE ONLY) PO SCH ×2 (05:37→14:04)
[2023-06-03 07:04] LABS: BASO % 0.4 % (0-2.0); EOS % 1.7 % (0-4.5); HEMATOCRIT 28.3 % (35.4-49); HEMOGLOBIN 8.9 GM/dL (11.7-16.9); LYMPH % 13.9 % (8-40); MCH 24.7 pg (25.7-33.7); MCHC 31.5 g/dl (32.0-35.9); MEAN CELL VOLUME 78.5 fl (80-96); MEAN PLT VOLUME 9.3 fl (7.5-11.1); MONO % 9.9 % (3.8-10.2); NEUT % 74.1 % (42.8-82.8); PLATELET COUNT 79 10^3/uL (134-434); WHITE BLOOD COUNT 10.2 K/mm3 (4.0-10.0)
[2023-06-03 07:11] LABS: INR 1.84 (0.83-1.09); PROTHROMBIN TIME (PATIENT) 21.2 SEC (9.7-13.0)
[2023-06-03 07:24] LABS: CHLORIDE 107 mmol/L (98-107); SODIUM 140 mmol/L (136-145)
[2023-06-03 07:32] LABS: CALCIUM 7.7 mg/dL (8.5-10.1)
[2023-06-03 07:33] LABS: BLOOD UREA NITROGEN 17.3 mg/dL (7-18); CO2 27 mmol/L (21-32); GLUCOSE,RANDOM 106 mg/dL (74-106)
[2023-06-03 07:36] LABS: CREATININE 1.1 mg/dL (0.55-1.3); SGOT/AST 38 U/L (15-37); SGPT/ALT 22 U/L (13-61)
[2023-06-03 07:38] LABS: BILIRUBIN,TOTAL 2.2 mg/dL (0.2-1); TOT PROT 6.5 g/dl (6.4-8.2)
[2023-06-03 07:39] LABS: ALK PHOS 101 U/L (45-117)
[2023-06-03 07:42] LABS: ALBUMIN 2.5 g/dl (3.4-5.0); ANION GAP 6 mmol/L (4-13); POTASSIUM 2.9 mmol/L (3.5-5.1)
[2023-06-03 08:02] LABS: HEPATITIS B SURFACE AG MATERN NON-REACTIVE (NONREACTIVE)
[2023-06-03] MEDS ORDERED: methaDONE HCL 10 MG TABLET PO SCH (09:00)
[2023-06-03 09:11] LABS: MAGNESIUM 1.6 mg/dL (1.8-2.4)
[2023-06-03 09:14] LABS: PHOSPHOROUS 2.3 mg/dL (2.5-4.9)
[2023-06-03] MEDS: TAMSULOSIN HCL 0.4 MG CAP PO SCH (09:24)
[2023-06-03] MEDS: THIAMINE HCL 100 MG TABLET (FP) PO SCH (09:25)
[2023-06-03] MEDS: FOLIC ACID 1 MG TABLET (FP) PO SCH (09:25)
[2023-06-03] MEDS: NICOTINE 14 MG/24 HOURS TOPICAL PATCH TD SCH (09:25)
[2023-06-03] MEDS: LISINOPRIL 20 MG TABLET PO SCH (09:25)
[2023-06-03] MEDS: CARVEDILOL 3.125 MG TABLET (FP) PO SCH (09:25)
[2023-06-03] MEDS: SPIRONOLACTONE 25 MG TABLET PO SCH (09:25)
[2023-06-03] MEDS: NIFEdipine E.R. 90 MG TABLET PO SCH (09:26)
[2023-06-03] MEDS ORDERED: POTASSIUM CHLORIDE ORAL LIQUID 20 MEQ/15 ML PO ONE (09:30)
[2023-06-03] MEDS ORDERED: methaDONE 80 MG, methaDONE 10 MG PO SCH (09:30)
[2023-06-03] MEDS ORDERED: MAGNESIUM 2GM/50ML STERILE WATER IVPB IVPB ONE (10:00)
[2023-06-03] MEDS: RIFAXIMIN 550 MG TABLET PO SCH (10:06)
[2023-06-03] MEDS: LACTATED RINGERS SOLUTION 1,000 ML/1,000 ML INFUS.BAG IV SCH (11:46)
[2023-06-03] MEDS: CEFTRIAXONE 2 GM in DEXTROSE 5%-WATER 100 ML IVPB SCH ×2 (12:05→13:56)
[2023-06-03 13:23] VITALS: BP 112/64; PULSE 83; RESP 16; TEMP 97.9
[2023-06-03] MEDS ORDERED: OLANZapine 10 MG TABLET PO SCH (22:00)
[2023-06-04] MEDS ORDERED: LORazepam 1 MG TABLET PO SCH (05:00)
[2023-06-04] MEDS ORDERED: FUROSEMIDE 40 MG TABLET (FP) PO SCH (10:00)
[2023-06-04 18:10] LABS: BODY FLUID ALBUMIN 0.4 g/dL (Not Estab.)
[2023-06-05] MEDS ORDERED: LORazepam 0.5 MG TABLET PO PRN
[2023-06-05] MEDS ORDERED: LORazepam 0.5 MG TABLET PO SCH (05:00)
[2023-06-06] MEDS ORDERED: LORazepam 0.5 MG TABLET PO ONE (05:00)
== END 2023-06-03 14:09 | disposition left against medical advice (07) | DRG 432 ==
LOC: JER 14:56 → JERBED 19:23 → J4W 06-02 19:19
PROVIDERS: ADMIT Internal Medicine; ATTEND Internal Medicine
PROC: 0W9G3ZZ Drainage of Peritoneal Cavity, Percutaneous Approach (ICD-10-PCS; principal; 2023-06-02)
DX: K70.31 Alcoholic cirrhosis of liver with ascites (principal); K65.2 Spontaneous bacterial peritonitis; F11.20 Opioid dependence, uncomplicated; F10.230 Alcohol dependence with withdrawal, uncomplicated; I10 Essential (primary) hypertension; I48.91 Unspecified atrial fibrillation; K76.82 Hepatic encephalopathy; N40.0 Benign prostatic hyperplasia without lower urinary tract symptoms; F31.9 Bipolar disorder, unspecified; F43.10 Post-traumatic stress disorder, unspecified; E83.42 Hypomagnesemia; B19.20 Unspecified viral hepatitis C without hepatic coma; D64.9 Anemia, unspecified; D69.6 Thrombocytopenia, unspecified; F10.220 Alcohol dependence with intoxication, uncomplicated; F17.210 Nicotine dependence, cigarettes, uncomplicated; F19.10 Other psychoactive substance abuse, uncomplicated
CPT/HCPCS: 0241U-QW; 36415; 70450-TC; 71045-TC-FY; 71250-TC; 72125-TC; 74019-TC-FY; 74176-TC; 76700-TC; 76942-TC; 80048; 80053; 80076; 80307; 81003; 82042; 82140; 82150; 82465; 82728; 82803; 82945; 82962; 83540; 83550; 83605; 83615; 83735; 83986; 84100; 84157; 84439; 84443; 84478; 84484; 85025; 85610; 85730; 86140; 86704; 86803; 86850; 86900; 86901; 87040; 87070; 87075; 87086; 87102; 87116; 87205; 87206; 87210; 87340; 87517; 87522; 88108; 88305-TC; 93005; 93010; 99285-25; P9047

== ENCOUNTER 2023-06-09 12:41 | Inpatient (IN) | payer OTHER ==
[2023-06-09 14:10] VITALS: BMI 34.9
[2023-06-09] MEDS ORDERED: DICYCLOMINE HCL 10 MG CAPSULE PO PRN (14:29)
[2023-06-09] MEDS ORDERED: LOPERAMIDE HCL 2 MG CAPSULE PO PRN (14:29)
[2023-06-09] MEDS ORDERED: NICOTINE POLACRILEX 4 MG GUM BUC PRN (14:29)
[2023-06-09] MEDS ORDERED: ACETAMINOPHEN 325 MG TABLET (FP) PO PRN (14:29)
[2023-06-09] MEDS ORDERED: POLYETHYLENE GLYCOL (HEALTHYLAX) 3350 17 GM PACKET PO PRN (14:29)
[2023-06-09] MEDS ORDERED: LORazepam 1 MG TABLET PO PRN (14:29)
[2023-06-09] MEDS ORDERED: ONDANSETRON *ODT* 4 MG TABLET SL PRN (14:29)
[2023-06-09] MEDS ORDERED: MAGNESIUM HYDROX 2400MG/30ML ORAL SUSPENSION 30 ML CUP PO PRN (14:29)
[2023-06-09] MEDS ORDERED: BENZONATATE 200 MG CAPSULE PO PRN (14:29)
[2023-06-09] MEDS ORDERED: guaiFENesin 600 MG TABLET.ER (FP) PO PRN (14:29)
[2023-06-09] MEDS ORDERED: BENZOCAINE/MENTHOL (CHLORASEPTIC ) LOZENGE MM PRN (14:29)
[2023-06-09] MEDS ORDERED: IBUPROFEN 600 MG TABLET (FP) PO PRN (14:29)
[2023-06-09] MEDS ORDERED: NALOXONE HCL 0.4 MG/ML VIAL IM PRN (14:29)
[2023-06-09] MEDS ORDERED: IBUPROFEN 400 MG TABLET (FP) PO PRN (14:29)
[2023-06-09] MEDS ORDERED: MAG HYDROX/AL HYDROX/SIMETH 30 ML UNIT-DOSE CUP PO PRN (14:29)
[2023-06-09] MEDS ORDERED: METHOCARBAMOL 500 MG TABLET PO PRN (14:29)
[2023-06-09] MEDS ORDERED: LORazepam 2 MG TABLET PO ONE (14:29)
[2023-06-09] MEDS ORDERED: BISMUTH SUBSALICYLATE 262 MG/15 ML BTL PO PRN (14:29)
[2023-06-09] MEDS ORDERED: NALOXONE HCL (KLOXXADO) 8 MG SPRAY NS PRN (14:29)
[2023-06-09] MEDS ORDERED: LORazepam 2 MG TABLET ONE (15:07)
[2023-06-09] MEDS: PRENATAL VITAMINS W/ FOLIC ACID TABLET (FP) PO SCH (15:12)
[2023-06-09] MEDS ORDERED: methaDONE HCL 40 MG DISPERSABLE TABLET PO ONE (16:32)
[2023-06-09] MEDS: LORazepam 2 MG TABLET PO SCH ×2 (17:39→22:11)
[2023-06-09] MEDS: CARVEDILOL 3.125 MG TABLET (FP) PO SCH (22:10)
[2023-06-09] MEDS: TAMSULOSIN HCL 0.4 MG CAP PO SCH (22:10)
[2023-06-09] MEDS: RIFAXIMIN 550 MG TABLET PO SCH (22:10)
[2023-06-09] MEDS: THIAMINE HCL 100 MG TABLET (FP) PO SCH (22:10)
[2023-06-09] MEDS: MELATONIN 5 MG TABLETS PO SCH (22:11)
[2023-06-10] MEDS: LORazepam 2 MG TABLET PO SCH ×4 (05:58→22:26)
[2023-06-10] MEDS ORDERED: methaDONE HCL 40 MG DISPERSABLE TABLET PO ONE (10:00)
[2023-06-10] MEDS: PRENATAL VITAMINS W/ FOLIC ACID TABLET (FP) PO SCH (10:23)
[2023-06-10] MEDS: hydrOXYzine PAMOATE 25 MG CAPSULE (FP) PO PRN (10:24)
[2023-06-10] MEDS: NIFEdipine E.R. 90 MG TABLET PO SCH (10:24)
[2023-06-10] MEDS: FUROSEMIDE 40 MG TABLET (FP) PO SCH (10:24)
[2023-06-10] MEDS: LISINOPRIL 20 MG TABLET PO SCH (10:24)
[2023-06-10] MEDS: CARVEDILOL 3.125 MG TABLET (FP) PO SCH ×2 (10:24→22:25)
[2023-06-10] MEDS: SPIRONOLACTONE 25 MG TABLET PO SCH (10:25)
[2023-06-10] MEDS: RIFAXIMIN 550 MG TABLET PO SCH ×2 (10:25→22:25)
[2023-06-10 12:22] LABS: HEMATOCRIT 24.3 % (35.4-49); HEMOGLOBIN 7.4 GM/dL (11.7-16.9); MCH 24.7 pg (25.7-33.7); MCHC 30.7 g/dl (32.0-35.9); MEAN CELL VOLUME 80.6 fl (80-96); MEAN PLT VOLUME 9.3 fl (7.5-11.1); PLATELET COUNT 78 10^3/uL (134-434); RBC 3.01 M/mm3 (4.00-5.60); RDW 22.8 % (11.9-15.9); WHITE BLOOD COUNT 2.8 K/mm3 (4.0-10.0)
[2023-06-10 12:23] LABS: CHLORIDE 112 mmol/L (98-107); POTASSIUM 3.7 mmol/L (3.5-5.1); SODIUM 140 mmol/L (136-145)
[2023-06-10 12:32] LABS: ALBUMIN 2.1 g/dl (3.4-5.0); ANION GAP 1 mmol/L (4-13); BLOOD UREA NITROGEN 11.1 mg/dL (7-18); CO2 27 mmol/L (21-32); GLUCOSE,RANDOM 108 mg/dL (74-106)
[2023-06-10 12:35] LABS: CREATININE 0.9 mg/dL (0.55-1.3); SGOT/AST 43 U/L (15-37); SGPT/ALT 21 U/L (13-61)
[2023-06-10 12:36] LABS: BILIRUBIN,TOTAL 2.4 mg/dL (0.2-1); TOT PROT 5.7 g/dl (6.4-8.2)
[2023-06-10 12:38] LABS: ALK PHOS 128 U/L (45-117)
[2023-06-10] MEDS: LACTULOSE 20 GM/30 ML UDC (FOR ORAL USE ONLY) PO ONE (15:27)
[2023-06-10] MEDS: LACTULOSE 20 GM/30 ML UDC (FOR ORAL USE ONLY) PO SCH ×2 (17:15→22:27)
[2023-06-10] MEDS: FERROUS SO4 325 MG TABLET (FP) PO SCH (17:15)
[2023-06-10] MEDS: MELATONIN 5 MG TABLETS PO SCH (22:26)
[2023-06-10] MEDS: THIAMINE HCL 100 MG TABLET (FP) PO SCH (22:26)
[2023-06-10] MEDS: TAMSULOSIN HCL 0.4 MG CAP PO SCH (22:26)
[2023-06-11] MEDS: LORazepam 1 MG TABLET PO SCH ×4 (05:56→22:18)
[2023-06-11] MEDS: methaDONE 80 MG, methaDONE 10 MG PO SCH (05:56)
[2023-06-11] MEDS ORDERED: methaDONE HCL 10 MG TABLET PO SCH (06:00)
[2023-06-11] MEDS: FERROUS SO4 325 MG TABLET (FP) PO SCH ×3 (07:07→17:18)
[2023-06-11] MEDS: FUROSEMIDE 40 MG TABLET (FP) PO SCH (10:15)
[2023-06-11] MEDS: LACTULOSE 20 GM/30 ML UDC (FOR ORAL USE ONLY) PO ONE (10:15)
[2023-06-11] MEDS: PRENATAL VITAMINS W/ FOLIC ACID TABLET (FP) PO SCH (10:15)
[2023-06-11] MEDS: CARVEDILOL 3.125 MG TABLET (FP) PO SCH ×2 (10:16→23:04)
[2023-06-11] MEDS: LISINOPRIL 20 MG TABLET PO SCH (10:16)
[2023-06-11] MEDS: LACTULOSE 20 GM/30 ML UDC (FOR ORAL USE ONLY) PO SCH ×4 (10:16→22:19)
[2023-06-11] MEDS: SPIRONOLACTONE 25 MG TABLET PO SCH (10:16)
[2023-06-11] MEDS: hydrOXYzine PAMOATE 25 MG CAPSULE (FP) PO PRN (10:17)
[2023-06-11] MEDS: RIFAXIMIN 550 MG TABLET PO SCH ×2 (10:17→22:19)
[2023-06-11] MEDS: NIFEdipine E.R. 90 MG TABLET PO SCH (10:17)
[2023-06-11] MEDS: OLANZapine 10 MG TABLET PO SCH ×2 (11:41→22:18)
[2023-06-11] MEDS: ALBUTEROL SO4 HFA INHALER IH PRN (13:30)
[2023-06-11] MEDS: MELATONIN 5 MG TABLETS PO SCH (22:18)
[2023-06-11] MEDS: THIAMINE HCL 100 MG TABLET (FP) PO SCH (22:18)
[2023-06-11] MEDS: TAMSULOSIN HCL 0.4 MG CAP PO SCH (22:18)
[2023-06-12] MEDS ORDERED: LORazepam 0.5 MG TABLET PO PRN
[2023-06-12] MEDS: methaDONE 80 MG, methaDONE 10 MG PO SCH (05:39)
[2023-06-12] MEDS: LORazepam 0.5 MG TABLET PO SCH ×4 (05:39→22:49)
[2023-06-12] MEDS: ALBUTEROL SO4 HFA INHALER IH PRN (05:41)
[2023-06-12] MEDS: FERROUS SO4 325 MG TABLET (FP) PO SCH ×3 (07:59→17:26)
[2023-06-12] MEDS: LACTULOSE 20 GM/30 ML UDC (FOR ORAL USE ONLY) PO SCH ×4 (10:14→22:49)
[2023-06-12] MEDS: SPIRONOLACTONE 25 MG TABLET PO SCH (10:14)
[2023-06-12] MEDS: PRENATAL VITAMINS W/ FOLIC ACID TABLET (FP) PO SCH (10:14)
[2023-06-12] MEDS: CARVEDILOL 3.125 MG TABLET (FP) PO SCH ×2 (10:16→22:49)
[2023-06-12] MEDS: NIFEdipine E.R. 90 MG TABLET PO SCH (10:16)
[2023-06-12] MEDS: OLANZapine 10 MG TABLET PO SCH ×2 (10:16→22:50)
[2023-06-12] MEDS: FUROSEMIDE 40 MG TABLET (FP) PO SCH (10:16)
[2023-06-12] MEDS: RIFAXIMIN 550 MG TABLET PO SCH ×2 (10:16→22:50)
[2023-06-12] MEDS: LISINOPRIL 20 MG TABLET PO SCH (10:16)
[2023-06-12 10:46] LABS: HEMATOCRIT 25.1 % (35.4-49); HEMOGLOBIN 7.5 GM/dL (11.7-16.9); MCH 24.5 pg (25.7-33.7); MEAN CELL VOLUME 81.7 fl (80-96); MEAN PLT VOLUME 10.3 fl (7.5-11.1); PLATELET COUNT 91 10^3/uL (134-434); RBC 3.07 M/mm3 (4.00-5.60); RDW 23.2 % (11.9-15.9); WHITE BLOOD COUNT 4.3 K/mm3 (4.0-10.0)
[2023-06-12 20:08] VITALS: TEMP 98
[2023-06-12 20:54] VITALS: BP 104/74; PULSE 93; RESP 18
[2023-06-12] MEDS: TAMSULOSIN HCL 0.4 MG CAP PO SCH (22:49)
[2023-06-12] MEDS: THIAMINE HCL 100 MG TABLET (FP) PO SCH (22:50)
[2023-06-12] MEDS: MELATONIN 5 MG TABLETS PO SCH (22:50)
[2023-06-13] MEDS ORDERED: LORazepam 0.5 MG TABLET PO ONE (05:00)
== END 2023-06-12 21:12 | disposition short-term general hospital (02) | DRG 897 ==
LOC: YASAS 12:41 → Y6N 15:18
PROVIDERS: ADMIT Allergy & Immunology; ATTEND Surgery
PROC: HZ2ZZZZ Detoxification Services for Substance Abuse Treatment (ICD-10-PCS; principal; 2023-06-09)
DX: F10.230 Alcohol dependence with withdrawal, uncomplicated (principal); F14.20 Cocaine dependence, uncomplicated; F11.20 Opioid dependence, uncomplicated; F19.282 Other psychoactive substance dependence with psychoactive substance-induced sleep disorder; F19.280 Other psychoactive substance dependence with psychoactive substance-induced anxiety disorder; Z59.00 Homelessness unspecified; R17 Unspecified jaundice; R18.8 Other ascites; F12.20 Cannabis dependence, uncomplicated; F17.210 Nicotine dependence, cigarettes, uncomplicated; F19.24 Other psychoactive substance dependence with psychoactive substance-induced mood disorder; D69.6 Thrombocytopenia, unspecified; I10 Essential (primary) hypertension; K74.60 Unspecified cirrhosis of liver; N40.0 Benign prostatic hyperplasia without lower urinary tract symptoms; R79.89 Other specified abnormal findings of blood chemistry; Z62.810 Personal history of physical and sexual abuse in childhood
CPT/HCPCS: 36415; 80053; 80307; 82140; 82247; 85027; 86780; 87635; 87811; Q0162

== ENCOUNTER 2023-07-01 16:22 | Inpatient (IN) | payer OTHER ==
[2023-07-01 16:55] VITALS: RESP 18; BMI 35.2
[2023-07-01] MEDS ORDERED: NICOTINE POLACRILEX 4 MG GUM BUC PRN (19:39)
[2023-07-01] MEDS ORDERED: NALOXONE HCL (KLOXXADO) 8 MG SPRAY NS PRN (19:39)
[2023-07-01] MEDS ORDERED: BISMUTH SUBSALICYLATE 524 MG/30 ML PO PRN (19:39)
[2023-07-01] MEDS ORDERED: POLYETHYLENE GLYCOL (HEALTHYLAX) 3350 17 GM PACKET PO PRN (19:39)
[2023-07-01] MEDS ORDERED: MAGNESIUM HYDROX 2400MG/30ML ORAL SUSPENSION 30 ML CUP PO PRN (19:39)
[2023-07-01] MEDS ORDERED: IBUPROFEN 400 MG TABLET (FP) PO PRN (19:39)
[2023-07-01] MEDS ORDERED: IBUPROFEN 600 MG TABLET (FP) PO PRN (19:39)
[2023-07-01] MEDS ORDERED: BENZOCAINE/MENTHOL (CHLORASEPTIC ) LOZENGE MM PRN (19:39)
[2023-07-01] MEDS ORDERED: MAG HYDROX/AL HYDROX/SIMETH 30 ML UNIT-DOSE CUP PO PRN (19:39)
[2023-07-01] MEDS ORDERED: NALOXONE HCL 0.4 MG/ML VIAL IM PRN (19:39)
[2023-07-01] MEDS ORDERED: BENZONATATE 200 MG CAPSULE PO PRN (19:39)
[2023-07-01] MEDS ORDERED: ACETAMINOPHEN 325 MG TABLET (FP) PO PRN (19:39)
[2023-07-01] MEDS ORDERED: guaiFENesin 600 MG TABLET.ER (FP) PO PRN (19:39)
[2023-07-01] MEDS ORDERED: DICYCLOMINE HCL 10 MG CAPSULE PO PRN (19:39)
[2023-07-01] MEDS ORDERED: LOPERAMIDE HCL 2 MG CAPSULE PO PRN (19:39)
[2023-07-01] MEDS ORDERED: ONDANSETRON *ODT* 4 MG TABLET ONE (21:25)
[2023-07-01] MEDS ORDERED: hydrOXYzine PAMOATE 25 MG CAPSULE (FP) PO ONE (21:25)
[2023-07-01] MEDS: hydrOXYzine PAMOATE 25 MG CAPSULE (FP) PO PRN (21:33)
[2023-07-01] MEDS: ONDANSETRON *ODT* 4 MG TABLET SL PRN (21:34)
[2023-07-01] MEDS ORDERED: THIAMINE HCL 100 MG TABLET (FP) PO SCH (22:00)
[2023-07-01] MEDS ORDERED: MELATONIN 5 MG TABLETS PO SCH (22:00)
[2023-07-02 06:33] VITALS: BP 146/80; PULSE 62; TEMP 97.8
[2023-07-02] MEDS: hydrOXYzine PAMOATE 25 MG CAPSULE (FP) PO PRN (07:05)
[2023-07-02] MEDS: ONDANSETRON *ODT* 4 MG TABLET SL PRN (07:20)
[2023-07-02] MEDS ORDERED: NICOTINE 21 MG/24 HOURS TOPICAL PATCH TD SCH (10:00)
[2023-07-02] MEDS ORDERED: PRENATAL VITAMINS W/ FOLIC ACID TABLET (FP) PO SCH (10:00)
[2023-07-02 10:42] LABS: HEMATOCRIT 30.7 % (35.4-49); HEMOGLOBIN 9.4 GM/dL (11.7-16.9); MCH 24.8 pg (25.7-33.7); MCHC 30.6 g/dl (32.0-35.9); MEAN CELL VOLUME 81.2 fl (80-96); PLATELET COUNT 61 10^3/uL (134-434); RBC 3.78 M/mm3 (4.00-5.60); RDW 21.3 % (11.9-15.9); WHITE BLOOD COUNT 4.2 K/mm3 (4.0-10.0)
[2023-07-02 11:05] LABS: CHLORIDE 108 mmol/L (98-107); SODIUM 142 mmol/L (136-145)
[2023-07-02 11:09] LABS: ALBUMIN 2.8 g/dl (3.4-5.0); CALCIUM 8.2 mg/dL (8.5-10.1)
[2023-07-02 11:10] LABS: CO2 29 mmol/L (21-32); GLUCOSE,RANDOM 92 mg/dL (74-106)
[2023-07-02 11:12] LABS: ALK PHOS 157 U/L (45-117); CREATININE 0.9 mg/dL (0.55-1.3); SGOT/AST 73 U/L (15-37); SGPT/ALT 29 U/L (13-61)
[2023-07-02 11:14] LABS: BILIRUBIN,TOTAL 2.8 mg/dL (0.2-1); TOT PROT 7.2 g/dl (6.4-8.2)
[2023-07-02 11:20] LABS: ANION GAP 5 mmol/L (4-13); POTASSIUM 2.7 mmol/L (3.5-5.1)
[2023-07-02] MEDS ORDERED: OLANZapine 10 MG TABLET PO SCH (12:15)
== END 2023-07-02 09:40 | disposition home or self-care (01) | DRG 896 ==
LOC: YASAS 16:22 → Y6N 23:47
PROVIDERS: ADMIT Allergy & Immunology; ATTEND Surgery
PROC: HZ2ZZZZ Detoxification Services for Substance Abuse Treatment (ICD-10-PCS; principal; 2023-07-01)
DX: F10.230 Alcohol dependence with withdrawal, uncomplicated (principal); U07.1 COVID-19; F11.20 Opioid dependence, uncomplicated; F13.20 Sedative, hypnotic or anxiolytic dependence, uncomplicated; F14.20 Cocaine dependence, uncomplicated; D61.818 Other pancytopenia; F17.210 Nicotine dependence, cigarettes, uncomplicated; F31.9 Bipolar disorder, unspecified; Z86.79 Personal history of other diseases of the circulatory system; Z86.19 Personal history of other infectious and parasitic diseases; Z87.19 Personal history of other diseases of the digestive system; Z99.89 Dependence on other enabling machines and devices
CPT/HCPCS: 36415; 80053; 80307; 85027; 86780; 87635; 87811; Q0162